=== PATIENT | male | born 1980 | race African-American/Black ===

== ENCOUNTER 2017-09-09 13:41 | Emergency (ER) | payer MEDICAID ==
[~2017-09-09] VITALS: Ht 188 cm; Wt 65.9 kg
[2017-09-09 14:31] VITALS: BP 134/84
[2017-09-09 14:49] LABS: Urine Bacteria NONE SEEN /hpf (None Seen); Urine Blood Negative /uL (Negative); Urine WBC <1 /hpf (0 - 3)
[2017-09-09 15:10] LABS: Basophils # (auto) 0 uL; Basophils % (auto) 0.1 % (0.0-2.0); Eosinophils # (auto) 0.1 uL; Hematocrit 46.5 % (41.0-53.0); Hemoglobin 15.8 g/dL (13.5-17.5); Lymphocytes % (auto) 8.6 % (10.0-50.0); Mean Corpuscular Hemoglobin 31.8 pg (28.0-32.0); Mean Corpuscular Hgb Conc. 34.1 g/dL (32.0-36.0); Mean Corpuscular Volume 93.4 fL (80.0-100.0); Monocytes # (auto) 0.8 uL; Monocytes % (auto) 6.5 % (0.0-12.0); Neutrophils # (auto) 10.1 uL; Neutrophils % (auto) 83.8 % (37.0-80.0); Nucleated Red Blood Cells % 0.1 %; Platelet Count (auto) 253 10^3/uL (140-450); Red Blood Cells 4.98 10^6/uL (4.5-5.90); Red Cell Distribution Width 13.7 % (11.8-14.3); White Blood Cell 12.1 10^3/uL (4.4-10.8)
[2017-09-09 15:24] LABS: Albumin 4.4 g/dL (3.4-5.0); BUN/Creatinine Ratio 10.5; Bilirubin, Total 0.6 mg/dL (0.2-1.0); Calcium 8.9 mg/dL (8.5-10.1); Potassium 3.9 mmol/L (3.5-5.1); Total Protein 8.6 g/dL (6.4-8.2)
== END 2017-09-09 17:22 | disposition left against medical advice (07) ==
LOC: ER 13:41
DX: R11.2 Nausea with vomiting, unspecified (principal); R10.9 Unspecified abdominal pain; R19.7 Diarrhea, unspecified; Z53.21 Procedure and treatment not carried out due to patient leaving prior to being seen by health care provider
CPT/HCPCS: 36415; 80053; 81001; 85025

== ENCOUNTER 2017-09-09 23:44 | Emergency (ER) | payer MEDICAID ==
[~2017-09-09] VITALS: Ht 188 cm; Wt 63.5 kg
[2017-09-10] VITALS: BP 136/85
[2017-09-10 01:11] LABS: Basophils # (auto) 0 uL; Basophils % (auto) 0.1 % (0.0-2.0); Eosinophils # (auto) 0.1 uL; Eosinophils % (auto) 1.2 % (0.0-7.0); Hematocrit 45.2 % (41.0-53.0); Hemoglobin 15.5 g/dL (13.5-17.5); Lymphocytes # (auto) 1.5 uL; Lymphocytes % (auto) 14.3 % (10.0-50.0); Mean Corpuscular Hgb Conc. 34.3 g/dL (32.0-36.0); Mean Corpuscular Volume 93.5 fL (80.0-100.0); Monocytes # (auto) 1.1 uL; Monocytes % (auto) 9.9 % (0.0-12.0); Neutrophils # (auto) 7.9 uL; Neutrophils % (auto) 74.5 % (37.0-80.0); Platelet Count (auto) 243 10^3/uL (140-450); Red Blood Cells 4.83 10^6/uL (4.5-5.90); Red Cell Distribution Width 13.8 % (11.8-14.3); White Blood Cell 10.6 10^3/uL (4.4-10.8)
[2017-09-10 01:29] LABS: Albumin 4.1 g/dL (3.4-5.0); BUN/Creatinine Ratio 8.8; Calcium 9.4 mg/dL (8.5-10.1); Magnesium 2.4 mg/dL (1.6-2.6); Potassium 3.7 mmol/L (3.5-5.1)
[2017-09-10 01:32] LABS: Bilirubin, Total 0.7 mg/dL (0.2-1.0); Total Protein 8.1 g/dL (6.4-8.2)
== END 2017-09-10 07:20 | disposition left against medical advice (07) ==
LOC: ER 23:44
DX: R11.2 Nausea with vomiting, unspecified (principal); R19.7 Diarrhea, unspecified; Z53.21 Procedure and treatment not carried out due to patient leaving prior to being seen by health care provider
CPT/HCPCS: 36415; 80053; 83735; 85025

== ENCOUNTER 2017-09-25 22:18 | Inpatient (IN) | payer MEDICAID ==
[~2017-09-25] VITALS: Ht 188 cm; Wt 97.9 kg
[2017-09-26 00:40] LABS: Basophils # (auto) 0 uL; Basophils % (auto) 0.2 % (0.0-2.0); Eosinophils # (auto) 0.3 uL; Eosinophils % (auto) 1.6 % (0.0-7.0); Hemoglobin 16.1 g/dL (13.5-17.5); Lymphocytes # (auto) 1.3 uL; Lymphocytes % (auto) 6.4 % (10.0-50.0); Mean Corpuscular Hgb Conc. 34.2 g/dL (32.0-36.0); Mean Corpuscular Volume 93.7 fL (80.0-100.0); Monocytes # (auto) 1.6 uL; Monocytes % (auto) 7.6 % (0.0-12.0); Neutrophils # (auto) 17.4 uL; Neutrophils % (auto) 84.2 % (37.0-80.0); Nucleated Red Blood Cells % 0.1 %; Platelet Count (auto) 248 10^3/uL (140-450); Red Blood Cells 5.02 10^6/uL (4.5-5.90); Red Cell Distribution Width 13.8 % (11.8-14.3); White Blood Cell 20.6 10^3/uL (4.4-10.8)
[2017-09-26 00:51] LABS: BUN/Creatinine Ratio 12.7; Calcium 8.8 mg/dL (8.5-10.1); Potassium 3.9 mmol/L (3.5-5.1)
[2017-09-26 00:54] LABS: Bilirubin, Total 0.6 mg/dL (0.2-1.0); Total Protein 8.3 g/dL (6.4-8.2)
[2017-09-26] MEDS ORDERED: SODIUM CHLORIDE 0.9% 1,000 ML IV ONE ×2 (08:24)
[2017-09-26] MEDS ORDERED: PIPERACILLIN-TAZOB 3.375GM 100 ML IV ONE (08:30)
[2017-09-26] MEDS ORDERED: ONDANSETRON HCL 4 MG/2 ML VIAL IV PRN (09:15)
[2017-09-26] MEDS ORDERED: ACETAMINOPHEN 325 MG TAB PO PRN (09:15)
[2017-09-26] MEDS ORDERED: HYDROcodone-ACET 5/325MG TAB PO PRN (09:15)
[2017-09-26] MEDS ORDERED: DOCUSATE SOD 100 MG CAP PO PRN (09:15)
[2017-09-26] MEDS ORDERED: TEMAZEPAM 15 MG CAP PO PRN (09:15)
[2017-09-26] MEDS ORDERED: MORPHINE SULFATE 8mg/ml INJ SDV IV PRN (09:15)
[2017-09-26] MEDS ORDERED: cefTRIAXone 1GM/10ml IVPUSH 10 ML IV ONE (09:15)
[2017-09-26] MEDS ORDERED: FAMOTIDINE 20 MG TAB PO SCH (10:00)
[2017-09-26] MEDS: MULTIPLE VITAMIN TAB PO SCH (10:00)
[2017-09-26] MEDS ORDERED: PANTOPRAZOLE 40 MG/10 ML VIAL IV SCH (10:00)
[2017-09-26] MEDS: metroNIDAZOLE 500MG/100ML 100 ML IV SCH ×2 (10:24→17:31)
[2017-09-26] MEDS: SODIUM CHLORIDE 0.9% 1,000 ML IV SCH ×2 (11:40→17:23)
[2017-09-26] MEDS: SUCRALFATE 1 GM/10 ML ORAL SUSP PO SCH ×3 (12:20→21:55)
[2017-09-26 14:37] LABS: Urine Bacteria NONE SEEN /hpf (None Seen); Urine Blood Negative /uL (Negative); Urine Mucus FEW (None Seen); Urine Specific Gravity 1.018 (1.001-1.035); Urine WBC 5 /hpf (0 - 3)
[2017-09-26 20:00] VITALS: BP 108/65
[2017-09-26] MEDS: PANTOPRAZOLE 40 MG/10 ML VIAL IV SCH (21:56)
[2017-09-27] VITALS (7 sets, daily range): BP systolic 108–148; BP diastolic 65–95
[2017-09-27] MEDS: SODIUM CHLORIDE 0.9% 1,000 ML IV SCH ×3 (02:01→17:47)
[2017-09-27] MEDS: metroNIDAZOLE 500MG/100ML 100 ML IV SCH ×3 (02:03→17:32)
[2017-09-27 05:44] LABS: Basophils # (auto) 0 uL; Basophils % (auto) 0.2 % (0.0-2.0); Eosinophils # (auto) 0.5 uL; Eosinophils % (auto) 6.7 % (0.0-7.0); Hematocrit 39.8 % (41.0-53.0); Hemoglobin 13.7 g/dL (13.5-17.5); Lymphocytes # (auto) 1.9 uL; Lymphocytes % (auto) 24.6 % (10.0-50.0); Mean Corpuscular Hemoglobin 32.4 pg (28.0-32.0); Mean Corpuscular Hgb Conc. 34.5 g/dL (32.0-36.0); Monocytes # (auto) 0.8 uL; Monocytes % (auto) 10.3 % (0.0-12.0); Neutrophils # (auto) 4.4 uL; Neutrophils % (auto) 58.2 % (37.0-80.0); Nucleated Red Blood Cells % 0.1 %; Platelet Count (auto) 183 10^3/uL (140-450); Red Blood Cells 4.23 10^6/uL (4.5-5.90); Red Cell Distribution Width 13.6 % (11.8-14.3); White Blood Cell 7.5 10^3/uL (4.4-10.8)
[2017-09-27 05:59] LABS: Albumin 3.2 g/dL (3.4-5.0); BUN/Creatinine Ratio 7.5; Calcium 8.1 mg/dL (8.5-10.1); Potassium 4.4 mmol/L (3.5-5.1)
[2017-09-27 06:03] LABS: Bilirubin, Total 0.6 mg/dL (0.2-1.0); Total Protein 6.7 g/dL (6.4-8.2)
[2017-09-27] MEDS: SUCRALFATE 1 GM/10 ML ORAL SUSP PO SCH (06:53)
[2017-09-27 08:34] LABS: Partial Thromboplastin Time 27.4 sec (22.64-33.71); Prothrombin Time 10.9 sec (9.37-12.3)
[2017-09-27] MEDS: cefTRIAXone 1GM/10ml IVPUSH 10 ML IV SCH (09:12)
[2017-09-27] MEDS ORDERED: NALOXONE HCL 0.4 MG/ML VIAL ONE (09:41)
[2017-09-27] MEDS ORDERED: LIDOCAINE VISCOUS 2% 15ML UD ONE (09:41)
[2017-09-27] MEDS ORDERED: FLUMAZENIL 0.1 MG/ML INJ 10ML MDV IV ONE (09:41)
[2017-09-27] MEDS ORDERED: diphenhdrAMINE HCL 50 MG/1 ML VL ONE (09:42)
[2017-09-27] MEDS: MULTIPLE VITAMIN TAB PO SCH (10:00)
[2017-09-27] MEDS: PANTOPRAZOLE 40 MG/10 ML VIAL IV SCH (10:51)
[2017-09-27] MEDS: BOOST PLUS 8 ounce PO SCH ×2 (12:00→17:48)
[2017-09-27] MEDS: MIDAZOLAM HCL 5 MG/ML-1ML VIAL ONE ×2 (13:30→13:37)
[2017-09-27] MEDS: fentaNYL CITRATE 100 MCG/2 ML VL ONE ×2 (13:30→13:37)
[2017-09-28] MEDS: metroNIDAZOLE 500MG/100ML 100 ML IV SCH ×2 (01:30→10:00)
[2017-09-28] MEDS: SODIUM CHLORIDE 0.9% 1,000 ML IV SCH ×2 (02:51→11:05)
[2017-09-28 05:00] VITALS: BP 117/66
[2017-09-28 05:40] LABS: Basophils # (auto) 0 uL; Basophils % (auto) 0.3 % (0.0-2.0); Eosinophils # (auto) 0.3 uL; Eosinophils % (auto) 5.2 % (0.0-7.0); Hematocrit 38.4 % (41.0-53.0); Hemoglobin 13.2 g/dL (13.5-17.5); Lymphocytes # (auto) 1.6 uL; Lymphocytes % (auto) 24.6 % (10.0-50.0); Mean Corpuscular Hemoglobin 32.4 pg (28.0-32.0); Mean Corpuscular Hgb Conc. 34.4 g/dL (32.0-36.0); Mean Corpuscular Volume 94.2 fL (80.0-100.0); Monocytes # (auto) 0.7 uL; Monocytes % (auto) 11.1 % (0.0-12.0); Neutrophils # (auto) 3.8 uL; Neutrophils % (auto) 58.8 % (37.0-80.0); Platelet Count (auto) 185 10^3/uL (140-450); Red Blood Cells 4.07 10^6/uL (4.5-5.90); Red Cell Distribution Width 13.4 % (11.8-14.3); White Blood Cell 6.5 10^3/uL (4.4-10.8)
[2017-09-28 05:58] LABS: Calcium 8.8 mg/dL (8.5-10.1); Potassium 4.5 mmol/L (3.5-5.1)
[2017-09-28 06:01] LABS: BUN/Creatinine Ratio 10.6
[2017-09-28 06:19] LABS: Amylase 122 U/L (25-115); Lipase 162 U/L (73-393)
[2017-09-28 08:00] VITALS: BP 139/84
[2017-09-28 08:45] VITALS: BP 139/84
[2017-09-28] MEDS: cefTRIAXone 1GM/10ml IVPUSH 10 ML IV SCH (09:00)
[2017-09-28] MEDS ORDERED: PANTOPRAZOLE 40 MG/10 ML VIAL IV SCH (10:00)
[2017-09-28] MEDS: MULTIPLE VITAMIN TAB PO SCH (10:00)
[2017-09-28] MEDS: BOOST PLUS 8 ounce PO SCH (10:13)
[2017-09-28 10:38] VITALS: BP 139/84
[2017-09-28 12:50] VITALS: BP 147/85
== END 2017-09-28 12:20 | disposition home or self-care (01) | DRG 249 ==
LOC: EDBD 22:18 → ER 22:27 → OVERFLOW 22:28 → WEST WING 09-26 18:32
PROVIDERS: ADMIT Internal Medicine; ATTEND Internal Medicine
PROC: 0DB78ZX Excision of Stomach, Pylorus, Via Natural or Artificial Opening Endoscopic, Diagnostic (ICD-10-PCS; principal; 2017-09-27 13:28)
DX: E86.0 Dehydration (principal); K52.9 Noninfective gastroenteritis and colitis, unspecified; E44.0 Moderate protein-calorie malnutrition; K86.1 Other chronic pancreatitis; E88.09 Other disorders of plasma-protein metabolism, not elsewhere classified; K59.00 Constipation, unspecified; F12.129 Cannabis abuse with intoxication, unspecified; Z88.0 Allergy status to penicillin; Z68.27 Body mass index [BMI] 27.0-27.9, adult; Z83.3 Family history of diabetes mellitus
CPT/HCPCS: 36415; 74176; 76705; 80048; 80053; 81001; 82150; 83605; 83690; 85025; 85610; 85730; 87040; 96365; 96366; 96375; 99291; C9113; J2250; J2543; J3490

== ENCOUNTER 2022-01-10 19:27 | Emergency (ER) | payer MEDICAID ==
[~2022-01-10] VITALS: Ht 188 cm; Wt 140.0 kg
[2022-01-10] MEDS ORDERED: ONDANSETRON HCL 4 MG/2 ML VIAL IV ONE (19:45)
[2022-01-10] MEDS ORDERED: SODIUM CHLORIDE 0.9% 1,000 ML IVB ONE (19:45)
[2022-01-10] MEDS ORDERED: PANTOPRAZOLE 40 MG/10 ML VIAL INJ IV ONE (19:45)
[2022-01-10] MEDS ORDERED: MORPHINE SULFATE 4 MG/ML SYR/VIAL IV ONE (19:45)
[2022-01-10 20:04] LABS: Basophils # (auto) 0 10 ^3/uL (0-0.2); Basophils % (auto) 0.1 % (0.0-2.0); Eosinophils # (auto) 0.3 10 ^3/uL (0-0.8); Eosinophils % (auto) 1.9 % (0.0-7.0); Hemoglobin 16.6 g/dL (13.5-17.5); Lymphocytes # (auto) 1.5 10 ^3/uL (0.4-5.4); Mean Corpuscular Hemoglobin 30.6 pg (28.0-32.0); Mean Corpuscular Hgb Conc. 33.2 g/dL (32.0-36.0); Mean Corpuscular Volume 92.2 fL (80.0-100.0); Monocytes # (auto) 1.2 10 ^3/uL (0-1.3); Monocytes % (auto) 7.2 % (0.0-12.0); Neutrophils # (auto) 13.6 10 ^3/uL (1.6-8.6); Neutrophils % (auto) 81.8 % (37.0-80.0); Red Blood Cells 5.43 10^6/uL (4.5-5.90); Red Cell Distribution Width 13.9 % (11.8-14.3); White Blood Cell 16.6 10^3/uL (4.4-10.8)
[2022-01-10 20:29] LABS: Albumin 4.4 g/dL (3.4-5.0); BUN/Creatinine Ratio 9.2; Calcium 9.1 mg/dL (8.5-10.1); Potassium 4.1 mmol/L (3.5-5.1)
[2022-01-10 20:30] LABS: Bilirubin, Total 1.1 mg/dL (0.2-1.0); Total Protein 8.8 g/dL (6.4-8.2)
[2022-01-10] MEDS ORDERED: PANT40TA2 PO (20:50)
[2022-01-10] MEDS ORDERED: ONDA-144 PO (20:50)
[2022-01-10 23:52] VITALS: BP 120/82
[2022-01-11] MEDS ORDERED: ONDA-144 PO (00:14)
[2022-01-11] MEDS ORDERED: PANT40TA2 PO (00:14)
== END 2022-01-11 00:16 | disposition home or self-care (01) ==
LOC: ER 19:27
DX: K52.9 Noninfective gastroenteritis and colitis, unspecified (principal); F17.210 Nicotine dependence, cigarettes, uncomplicated; Z88.0 Allergy status to penicillin
CPT/HCPCS: 36415; 74176; 80053; 82150; 83690; 85025; 96361; 96374; 96375; 99284; C9113; J2270; J2405; J7030

== ENCOUNTER 2024-12-20 15:19 | Inpatient (IN) | payer MEDICAID ==
[~2024-12-20] VITALS: Ht 188 cm; Wt 67.4 kg
[~2024-12-20 15:19] MED LIST: ONDA-144 PO; PANT40TA2 PO
--- NOTE | 2024-12-20 16:11 | ED.PDOC ---
History of Present Illness HPI Comments 44-year-old male with PMHx Pancreatitis presents with a chief complaint of abdominal pain x 3 days with associated nausea and vomiting. Patient states that his pain is localized to his epigastric region, nonradiating, nonexertional, describes as sharp, and rates his pain a 10/10 at this time. Patient mentions that the last time he had pain like this, he was diagnosed with pancreatitis. Chief Complaint: Abdominal Pain Time Seen by MD: 15:48 Primary Care Provider: NONE Reviewed Notes: Medications, Allergies Allergies: Coded Allergies: Penicillins (Unverified Allergy, Unknown, 01/10/22) Home Meds Active Scripts Ondansetron (Zofran) 4 Mg Tab, 1 TAB PO Q6HR, #20 TAB Prov:JD TEMPLETON MD 01/11/22 Pantoprazole Sodium Sesquihydr (Protonix) 40 Mg Tab, 40 MG PO DAILY, #30 TAB Prov:JD TEMPLETON MD 01/11/22 Information Source: Patient Mode of Arrival: Ambulatory Severity: Moderate Timing: Days Duration: Since onset Prehospital treatment: None Past Medical History Past Medical History (Other): PANCREATITIS Surgical History: Denies all surgeries Family History Family History: Family hx of DM Social History Smoker: Cigarettes Alcohol: Occasionally Drugs: Marijuana Lives In: Home Constitutional: denies: chills, diaphoresis, fatigue, fever, malaise, sweats, weakness, others EENTM: denies: blurred vision, double vision, ear bleeding, ear discharge, ear drainage, ear pain, ear ringing, eye pain, eye redness, hearing loss, mouth p ain, mouth swelling, nasal discharge, nose bleeding, nose congestion, nose pain, photophobia, tearing, throat pain, throat swelling, voice changes, others Respiratory: denies: cough, hemoptysis, orthopnea, SOB at rest, shortness of br eath, SOB with excertion, stridor, wheezing, others Cardiovascular: denies: chest pain, dizzy spells, diaphoresis, Dyspnea on exertion, edema, irregular heart beat, left arm pain, lightheadedness, palpitations, PND, syncope, others Gastrointestinal: reports: abdominal pain, nausea, vomiting; denies: abdomen distended, blood streaked bowels, constipated, diarrhea, dysphagia, difficulty swallowing, hematemesis, melena, poor appetite, poor fluid intake, rectal bleeding, rectal pain, others Genitourinary: denies: burning, dysuria, flank pain, frequency, hematuria, incontinence, penile discharge, penile sore, pain, testicle pain, testicle swelling, urgency, others Neurological: denies: dizziness, fainting, headache, left sided numbness, left sided weakness, numbness, paresthesia, pre-existing deficit, right sided numbness, right sided weakness, seizure, speech problems, tingling, tremors, weakness, others Musculoskeletal: denies: back pain, gout, joint pain, joint swelling, muscle pain, muscle stiffness, neck pain, others Integumetry: denies: bruises, change in color, change in hair/nails, dryness, laceration, lesions, lumps, rash, wounds, others Allergic/Immunocompromised: denies: Difficulty Healing, Frequent Infections, Hives, Itching, others Hematologic/Lymphatic: denies: anemia, blood clots, easy bleeding, easy bruising, swollen glands, others Endocrine: denies: excessive hunger, excessive sweating, excessive thirst, excessive urination, flushing, intolerance to cold, intolerance to heat, unexplained weight gain, unexplained weight loss, others Psychiatric: denies: anxiety, bipolar disorder, depression, hopeless, panic disorder, schizophrenia, sleepless, suicidal, others All Other Systems: Reviewed and Negative Physical Exam General Appearance: No Apparent Distress, Normal HEENT: Normal ENT Inspection, Pharynx Normal, TMs Normal Neck: Full Range of Motion, Non-Tender, Normal, Normal Inspection Respiratory: Chest Non-Tender, Lungs Clear, No Accessory Muscle Use, No Respiratory Distress, Normal Breath Sounds Cardiovascular: No Edema, No JVD, No Murmur, No Gallop, Normal Peripheral Pulses, Regular Rate/Rhythm Breast Exam: Deferred Gastrointestinal: No Organomegaly, Non Tender, No Pulsatile Mass, Normal Bowel Sounds, Soft Genitalia: Deferred Pelvic: Deferred Rectal: Deferred Extremities: No calf tenderness, Normal capillary refill, Normal inspection, Normal range of motion, Non-tender, No pedal edema Musculoskeletal : Apperance: Normal Neurologic: Alert, beef selector II-XII nml as Tested, No Motor Deficits, Normal Affect, Normal Mood, No Sensory Deficits Cerebellar Function: Normal Reflexes: Normal Skin: Dry, Normal Color, Warm Lymphatic: No Adenopathy Was a procedure done? Was a procedure done?: No Differential Dx Considerations may include: Colitis, enteritis, viral syndrome, infectious etiology, small-bowel obstruction X-Ray, Labs, Meds, VS Vital Signs Date Time Temp Pulse Resp B/P (MAP) Pulse Ox O2 Delivery O2 Flow Rate FiO2 12/20/24 18:10 89 13 127/88 12/20/24 17:00 83 15 124/84 (97) 97 12/20/24 16:50 82 15 124/84 12/20/24 16:20 57 13 129/82 12/20/24 16:05 75 12/20/24 16:00 Room Air* 0 21 12/20/24 16:00 98.6 65 16 146/91 (109) 96 98.6 12/20/24 15:30 98.5 65 16 146/91 (109) 96 98.5 Lab Test 12/20/24 16:33 Range/Units White Blood Count 10.1 4.4-10.8 10^3/uL Red Blood Count 4.85 4.5-5.90 10^6/uL Hemoglobin 15.4 13.5-17.5 g/dL Hematocrit 45.1 41.0-53.0 % Mean Corpuscular Volume 92.9 80.0-100.0 fL Mean Corpuscular Hemoglobin 31.8 28.0-32.0 pg Mean Corpuscular Hemoglobin Concent 34.3 32.0-36.0 g/dL Red Cell Distribution Width 13.4 11.8-14.3 % Platelet Count 201 140-450 10^3/uL Mean Platelet Volume 8.4 6.9-10.8 fL Neutrophils (%) (Auto) 78.4 37.0-80.0 % Lymphocytes (%) (Auto) 9.6 L 10.0-50.0 % Monocytes (%) (Auto) 8.6 0.0-12.0 % Eosinophils (%) (Auto) 3.1 0.0-7.0 % Basophils (%) (Auto) 0.3 0.0-2.0 % Neutrophils # (Auto) 7.9 1.6-8.6 10 ^3/uL Lymphocytes # (Auto) 1.0 0.4-5.4 10 ^3/uL Monocytes # (Auto) 0.9 0-1.3 10 ^3/uL Eosinophils # (Auto) 0.3 0-0.8 10 ^3/uL Basophils # (Auto) 0 0-0.2 10 ^3/uL Nucleated Red Blood Cells 0.0 % Sodium Level 141 136-145 mmol/L Potassium Level 3.6 3.5-5.1 mmol/L Chloride Level 108 H 98-107 mmol/L Carbon Dioxide Level 25 20-31 mmol/L Anion Gap 8 5-15 Blood Urea Nitrogen 12 9-23 mg/dL Creatinine 1.10 0.700-1.30 mg/dL Glomerular Filtration Rate Calc 86 >90 mL/min BUN/Creatinine Ratio 10.9 10.0-20.0 Serum Glucose 101 74-106 mg/dL Calcium Level 8.3 L 8.7-10.4 mg/dL Total Bilirubin 0.7 0.2-1.0 mg/dL Aspartate Amino Transferase (AST) 26 13-40 U/L Alanine Aminotransferase (ALT) 21 7-40 U/L Alkaline Phosphatase 69 46-116 U/L Total Protein 6.3 5.7-8.2 g/dL Albumin 3.9 3.2-4.8 g/dL Lipase 40 12-53 U/L Current Medications Medications (Trade) Dose Ordered Sig/Stefany Route Start Time Stop Time Status Last Admin Sodium Chloride 1,000 ml @ 1,000 mls/hr Q1H ONCE IV 12/20/24 16:00 12/20/24 16:59 DC 12/20/24 16:18 Morphine Sulfate 4 mg ONCE ONCE IV 12/20/24 16:00 12/20/24 16:01 DC 12/20/24 16:20 Ondansetron HCl (Zofran) 4 mg ONCE ONCE IV 12/20/24 16:00 12/20/24 16:01 DC 12/20/24 16:21 Ondansetron HCl (Zofran) 4 mg ONCE ONCE IV 12/20/24 18:00 12/20/24 18:01 MN 12/20/24 18:11 Morphine Sulfate 4 mg ONCE ONCE IV 12/20/24 18:00 12/20/24 18:01 DC 12/20/24 18:10 PROCEDURE(s): ABPLIV - CT AB PEL WITH IV CON ONLY REASON: epigastric pain ORDER NUMBER(s): [id number], ACCESSION NUMBER(s): [id number] COMPUTERIZED TOMOGRAPHY ABDOMEN AND PELVIS WITH CONTRAST REASON FOR EXAM: epigastric pain COMPARISON: None TECHNIQUE: The exam was performed on a Multidetector scanner. Spiral scans were acquired from the diaphragm to the symphysis pubis after administration of IV contrast. 2-D coronal and sagittal reformatted images were provided. Radiation optimization: All CT scans at this facility use at least one of these dose optimization techniques: Automated exposure control mA and/or kV adjustment per patient size (includes targeted exams where dose is matched to clinical indication) or iterative reconstruction. CONTRAST ADMINISTRATION: 80 mL omnipaque 300 intravenously RADIATION DOSE: CTDI: 5 mGy DLP: 278 mGy-cm FINDINGS: The visualized lung apices are grossly clear. There is no pleural effusion. T here is no pericardial effusion. The spleen is not enlarged. The liver is normal in size and contour. No calcified gallstone is identified. The stomach is significantly distended. The pancreas is grossly unremarkable. The adrenal glands are normal. The kidneys enhance symmetrically. No solid renal mass is identified. There is no hydronephrosis of either kidney. There is no abdominal aortic aneurysm. No pathologic lymphadenopathy is identified by size criteria. The urinary bladder is within normal limits. The prostate and seminal vesicles are within normal limits. There is fluid distributed throughout the large and small bowel without pathologic distention or transition point. The appendix is normal. No acute osseous abnormality is identified. IMPRESSION: Distended stomach and fluid distributed throughout large and small bowel without pathologic distention or a transition point. This can be seen with enteritis. There is no convincing evidence of small-bowel obstruction. Normal appendix. X-Ray, Labs, Meds, VS Comment Addendum by Dr. Ariana Rojas: 44-year-old male who presented with abdominal pain, nausea and vomiting, endorsed to me by Dr. Brown to follow-up on CT results and re-evaluate. CT abdomen and pelvis: IMPRESSION: Distended stomach and fluid distributed throughout large and small bowel without pathologic distention or a transition point. This can be seen with enteritis. There is no convincing evidence of small-bowel obstruction. Normal appendix. Patient received IV fluids, morphine and Zofran without relief, and was still having pain and could not tolerate p.o. fluids. Plan will be to admit the patient for pain and emesis control. Time of 1ST Reevaluation: 16:18 Reevaluation 1ST: Unchanged Patient Education/Counseling: Diagnosis, Treatment, Need For Follow Up Family Education/Counseling: No Family Present SEPSIS Sepsis Screen Physician Orders Urinalysis (12/20/24 15:48) Ct Ab Pel With Iv Con Only (12/20/24 16:58) Vital Signs Date Time Temp Pulse Resp B/P (MAP) Pulse Ox O2 Delivery O2 Flow Rate FiO2 12/20/24 18:10 89 13 127/88 12/20/24 17:00 83 15 124/84 (97) 97 12/20/24 16:50 82 15 124/84 12/20/24 16:20 57 13 129/82 12/20/24 16:05 75 12/20/24 16:00 Room Air* 0 21 12/20/24 16:00 98.6 65 16 146/91 (109) 96 98.6 12/20/24 15:30 98.5 65 16 146/91 (109) 96 98.5 Laboratory Tests Test 12/20/24 16:33 White Blood Count 10.1 10^3/uL (4.4-10.8) Medications Medications Dose Ordered Sig/Stefany Route Start Time Stop Time Status Last Admin Dose Admin Morphine Sulfate 4 mg ONCE ONCE IV 12/20/24 16:00 12/20/24 16:01 DC 12/20/24 16:20 Morphine Sulfate 4 mg ONCE ONCE IV 12/20/24 18:00 12/20/24 18:01 DC 12/20/24 18:10 Ondansetron HCl 4 mg ONCE ONCE IV 12/20/24 16:00 12/20/24 16:01 DC 12/20/24 16:21 Ondansetron HCl 4 mg ONCE ONCE IV 12/20/24 18:00 12/20/24 18:01 DC 12/20/24 18:11 Sodium Chloride 1,000 ml @ 1,000 mls/hr Q1H ONCE IV 12/20/24 16:00 12/20/24 16:59 DC 12/20/24 16:18 Departure 1 Departure Time of Disposition: 18:32 (Patient presented with abdominal pain that was concerning for possible appendicits, gastritis, cholecystitis, colitis, gastroenteritis, sbo, or orther possible surgical emergency. Data: 1. I ordered and reviewed the result of at least 3 labs including a CBC, BMP, and Urinalysis. 2. I independently interpreted the following tests: CT Abdoment and Pelvis is concerning for diffuse colitis .Risk:This patient has a high risk of morbidity due to further diagnostic testing or treatment and may suffer from an acute abdominal process disorder. Workup reveals diffuse colitis and patient should be admitted for further workup. and possible expert consultation. ) Impression: Primary Impression: Intractable abdominal pain Additional Impressions: Intractable vomiting Non-specific colitis Disposition: ADMITTED INPATIENT Admit to: Med Surg Condition: Guarded Critical Care Note Critical Care Time?: Yes Critical care comment: Intractable abdominal pain Authorized and Performed by: Sharron Brown MD Total critical care time: Approximately 47 minutes Due to a high probability of clinically significant, life threatening deterioration, the patient required my highest level of preparedness to intervene emergently and I personally spent this critical care time directly and personally managing the patient. This critical care time included obtaining a history; examining the patient; pulse oximetry; ordering and review of studies; arranging urgent treatment with development of a management plan; evaluation of patient's response to treatment; frequent reassessment; and, discussions with other providers. This critical care time was performed to assess and manage the high probability of imminent, life-threatening deterioration that could result in multi-organ failure. It was exclusive of separately billable procedures and treating other patients and teaching time. Please see my other sections and the rest of the note for further information on patient assessment and treatment. Stability Stability form required: No Heart Score Heart Score: Heart Score Response (Comments) Value History N/A 0 EKG N/A 0 Age N/A 0 Risk Factors N/A 0 Troponin N/A 0 Total 0 I personally scribed for SHARRON BROWN MD ([email or web address]) on 12/20/24 at 16:11. Electronically submitted by Rudy Allan ([email or web address]). SHARRON BROWN MD Dec 20, 2024 16:11 WESLEY SULLIVAN MD Dec 20, 2024 18:28
[2024-12-20] MEDS: SODIUM CHLORIDE 0.9% 1,000 ML IV ONE (16:18)
[2024-12-20] MEDS: MORPHINE SULFATE 4 MG/ML SYR/VIAL IV ONE ×2 (16:20→18:10)
[2024-12-20] MEDS: ONDANSETRON HCL 4 MG/2 ML VIAL IV ONE ×2 (16:21→18:11)
[2024-12-20 16:49] LABS: Hematocrit 45.1 % (41.0-53.0); Hemoglobin 15.4 g/dL (13.5-17.5); Mean Corpuscular Hemoglobin 31.8 pg (28.0-32.0); Mean Corpuscular Volume 92.9 fL (80.0-100.0); Nucleated Red Blood Cells % 0.0 %
[2024-12-20 17:01] LABS: Alanine Aminotransferase 21 U/L (7-40); Albumin 3.9 g/dL (3.2-4.8); Alkaline Phosphatase 69 U/L (46-116); Anion Gap 8 (5-15); BUN/Creatinine Ratio 10.9 (10.0-20.0); Bilirubin, Total 0.7 mg/dL (0.2-1.0); Blood Urea Nitrogen 12 mg/dL (9-23); Carbon Dioxide 25 mmol/L (20-31); Glucose 101 mg/dL (74-106); Lipase 40 U/L (12-53); Potassium 3.6 mmol/L (3.5-5.1); Sodium 141 mmol/L (136-145); Total Protein 6.3 g/dL (5.7-8.2)
[2024-12-20 17:07] LABS: Calcium 8.3 mg/dL (8.7-10.4); Chloride 108 mmol/L (98-107)
[2024-12-20] MEDS: IOHEXOL 300 MG/ML 100ML BOTTLE IJ ONE (18:08)
--- NOTE | 2024-12-20 18:14 | DVH ---
COMPUTERIZED TOMOGRAPHY ABDOMEN AND PELVIS WITH CONTRAST REASON FOR EXAM: epigastric pain COMPARISON: None TECHNIQUE: The exam was performed on a Multidetector scanner. Spiral scans were acquired from the nathan phragm to the symphysis pubis after administration of IV contrast. 2-D coronal and sagittal reformatt ed images were provided. Radiation optimization: All CT scans at this facility use at least one of th lorne dose optimization techniques: Automated exposure control mA and/or kV adjustment per patient size (includes targeted exams where dose is matched to clinical indication) or iterative reconstruction. CONTRAST ADMINISTRATION: 80 mL omnipaque 300 intravenously RADIATION DOSE: CTDI: 5 mGy DLP: 278 mGy-cm FINDINGS: The visualized lung apices are grossly clear. There is no pleural effusion. There is no pericardial effusion. The spleen is not enlarged. The liver is normal in size and contour. No calcified gallston e is identified. The stomach is significantly distended. The pancreas is grossly unremarkable. The a drenal glands are normal. The kidneys enhance symmetrically. No solid renal mass is identified. Ther e is no hydronephrosis of either kidney. There is no abdominal aortic aneurysm. No pathologic lymphad enopathy is identified by size criteria. The urinary bladder is within normal limits. The prostate a nd seminal vesicles are within normal limits. There is fluid distributed throughout the large and sma ll bowel without pathologic distention or transition point. The appendix is normal. No acute osseous abnormality is identified. IMPRESSION: Distended stomach and fluid distributed throughout large and small bowel without pathologic distentio n or a transition point. This can be seen with enteritis. There is no convincing evidence of small-joni wel obstruction. Normal appendix.
--- NOTE | 2024-12-20 22:13 | DVHHP2 ---
History of Present Illness History of Present Illness This is a 44-year-old male with past medical history of pancreatitis came to ER with the complaint of severe abdominal pain for 3 days which is worsen since afternoon today 10/10 intensity, continuous, localized localized in epigastric region, aggravated on eating no relieving factors associated with nausea and vomiting. Vomitus contained food materials but no blood . Patient denies any recent sick contact, eating outside food before symptoms started. Patient used to smoking cigarettes and marijuana daily. Last smoking marijuana yesterday. Denies any chest pain, SOB, cough, headache, fever, dysuria or any focal weakness. Past Medical History: PANCREATITIS Surgical History: Denies all surgeries Family History: Family hx of DM Social History Smoker: Cigarettes daily approximately pack per day Alcohol: Occasionally Drugs: Marijuana daily and last smoking yesterday Lives In: Home Allergy: PCN Review of Systems Constitutional: Yes: Weakness, Malaise; No: Fever, Chills, Sweats, Other Eyes: No: Pain, Vision change, Conjunctivae inflammation, Eyelid inflammation, Other, Redness ENT: No: Ear pain, Ear discharge, Nose pain, Nose discharge, Nose congestion, Mouth pain, Mouth swelling, Throat pain, Throat swelling, Other Respiratory: No: Cough, Dry, Shortness of breath, SOB with excertion, Wheezing, Hemoptysis, Pleuritic Pain, Sputum, Wheezing, Other Cardiovascular: No: Chest Pain, Palpitations, Orthopnea, Paroxysmal Noc. Dyspnea, Edema, Lt Headedness, Other Gastrointestinal: Nausea, Vomiting, Abdominal Pain; No: Diarrhea, Constipation, Melena, Hematochezia, Other Genitourinary: No Dysuria, No Frequency, No Incontinence, No Hematuria, No Retention, No Other Musculoskeletal: No: other, neck pain, shoulder pain, arm pain, back pain, hand pain, leg pain, foot pain Skin: No: Rash, Lesions, Jaundice, Bruising, Other Neurological: No: Weakness, Numbness, Incoordination, Change in speech, Confusion, Seizures, Other Allergies: Coded Allergies: Metoclopramide (Verified Allergy, Intermediate, Rash, 12/21/24) Penicillins (Unverified Allergy, Unknown, 01/10/22) Medications Current Medications Medications Dose Ordered Sig/Stefany Route Start Time Stop Time Status Last Admin Dose Admin Nitroglycerin 0.4 mg Q5MINP PRN SL 12/20/24 22:15 UNV Morphine Sulfate 2 mg Q30M PRN IV 12/20/24 22:15 UNV Sodium Chloride 1,000 ml @ 100 mls/hr Q10H IV 12/20/24 22:15 UNV Pantoprazole Sodium 40 mg DAILY IV 12/21/24 10:00 UNV Ondansetron HCl 4 mg Q8HPRN PRN IV 12/20/24 22:15 UNV Metoclopramide HCl 10 mg Q6HR IV 12/21/24 00:00 UNV Exam Vital Signs Vital Signs Date Time Temp Pulse Resp B/P (MAP) Pulse Ox O2 Delivery O2 Flow Rate FiO2 12/20/24 20:00 97.2 66 14 115/64 (81) 96 97.2 12/20/24 16:00 Room Air* 0 21 General Appearance: Alert, Oriented X3, Cooperative HEENT: Atraumatic, PERRLA, EOMI Respiratory: Clear to auscultation, Normal air movement Cardiovascular: Regular rate, Normal S1, Normal S2 Abdominal: Normal bowel sounds, Soft, Other (TENDER ON DEEP PALPATION EPIGASTRIC AREA) Extremities: No clubbing, No cyanosis, No edema, Normal pulses Skin: No breakdown, No significant lesion Neuro: Normal gait, Normal speech Labs/Xrays Labs Test 12/20/24 16:33 Range/Units White Blood Count 10.1 4.4-10.8 10^3/uL Red Blood Count 4.85 4.5-5.90 10^6/uL Hemoglobin 15.4 13.5-17.5 g/dL Hematocrit 45.1 41.0-53.0 % Mean Corpuscular Volume 92.9 80.0-100.0 fL Mean Corpuscular Hemoglobin 31.8 28.0-32.0 pg Mean Corpuscular Hemoglobin Concent 34.3 32.0-36.0 g/dL Red Cell Distribution Width 13.4 11.8-14.3 % Platelet Count 201 140-450 10^3/uL Mean Platelet Volume 8.4 6.9-10.8 fL Neutrophils (%) (Auto) 78.4 37.0-80.0 % Lymphocytes (%) (Auto) 9.6 L 10.0-50.0 % Monocytes (%) (Auto) 8.6 0.0-12.0 % Eosinophils (%) (Auto) 3.1 0.0-7.0 % Basophils (%) (Auto) 0.3 0.0-2.0 % Neutrophils # (Auto) 7.9 1.6-8.6 10 ^3/uL Lymphocytes # (Auto) 1.0 0.4-5.4 10 ^3/uL Monocytes # (Auto) 0.9 0-1.3 10 ^3/uL Eosinophils # (Auto) 0.3 0-0.8 10 ^3/uL Basophils # (Auto) 0 0-0.2 10 ^3/uL Nucleated Red Blood Cells 0.0 % Sodium Level 141 136-145 mmol/L Potassium Level 3.6 3.5-5.1 mmol/L Chloride Level 108 H 98-107 mmol/L Carbon Dioxide Level 25 20-31 mmol/L Anion Gap 8 5-15 Blood Urea Nitrogen 12 9-23 mg/dL Creatinine 1.10 0.700-1.30 mg/dL Glomerular Filtration Rate Calc 86 >90 mL/min BUN/Creatinine Ratio 10.9 10.0-20.0 Serum Glucose 101 74-106 mg/dL Calcium Level 8.3 L 8.7-10.4 mg/dL Total Bilirubin 0.7 0.2-1.0 mg/dL Aspartate Amino Transferase (AST) 26 13-40 U/L Alanine Aminotransferase (ALT) 21 7-40 U/L Alkaline Phosphatase 69 46-116 U/L Total Protein 6.3 5.7-8.2 g/dL Albumin 3.9 3.2-4.8 g/dL Lipase 40 12-53 U/L SEPSIS Sepsis Screen Date sepsis recognized/suspect: Dec 20, 2024 Time Sepsis recognized/suspect: 1524 Recent Procedure: No On Antibiotic Therapy: No Respiratory Rate >20: No Heart Rate >90: No Temp<36 C (96.8 F) or >38.3 C: No SBP <90 or MAP <65 mmHG: No New Acute Mental Status Change: No Is the patient on CPAP, BIPAP,: No Physician Orders Urinalysis (12/20/24 15:48) Ct Ab Pel With Iv Con Only (12/20/24 16:58) Admit (12/20/24 22:06) Nitroglycerin Sublingual (Ntrostat Subli (12/20/24 22:15) Morphine Sulfate Injection (12/20/24 22:15) Clear Liq Diet (12/21/24 Breakfast) Sodium Chloride 0.9% (12/20/24 22:15) Pantoprazole (Protonix) (12/20/24 22:15) Pantoprazole (Protonix) (12/21/24 10:00) Ondansetron Hcl (Zofran) (12/20/24 22:15) Metoclopramide Injection (Reglan Injecti (12/21/24 00:00) Vital Signs Date Time Temp Pulse Resp B/P (MAP) Pulse Ox O2 Delivery O2 Flow Rate FiO2 12/20/24 20:00 97.2 66 14 115/64 (81) 96 97.2 12/20/24 19:00 84 12 122/83 (96) 96 12/20/24 18:40 80 12 122/83 12/20/24 18:10 89 13 127/88 12/20/24 18:00 84 15 122/83 (96) 96 12/20/24 17:00 83 15 124/84 (97) 97 12/20/24 16:50 82 15 124/84 12/20/24 16:20 57 13 129/82 12/20/24 16:05 75 12/20/24 16:00 Room Air* 0 21 12/20/24 16:00 98.6 65 16 146/91 (109) 96 98.6 12/20/24 15:30 98.5 65 16 146/91 (109) 96 98.5 Laboratory Tests Test 12/20/24 16:33 White Blood Count 10.1 10^3/uL (4.4-10.8) Medications Medications Dose Ordered Sig/Stefany Route Start Time Stop Time Status Last Admin Dose Admin Morphine Sulfate 4 mg ONCE ONCE IV 12/20/24 16:00 12/20/24 16:01 DC 12/20/24 16:20 4 MG Morphine Sulfate 4 mg ONCE ONCE IV 12/20/24 18:00 12/20/24 18:01 DC 12/20/24 18:10 4 MG Ondansetron HCl 4 mg ONCE ONCE IV 12/20/24 16:00 12/20/24 16:01 DC 12/20/24 16:21 4 MG Ondansetron HCl 4 mg ONCE ONCE IV 12/20/24 18:00 12/20/24 18:01 DC 12/20/24 18:11 4 MG Sodium Chloride 1,000 ml @ 1,000 mls/hr Q1H ONCE IV 12/20/24 16:00 12/20/24 16:59 DC 12/20/24 16:18 1,000 MLS/HR Assessment/Plan Assessment/Plan #INTRACTABLE ABDOMINAL PAIN LIKELY ACUTE GASTRITIS -Patient came with abdominal pain, nausea and vomiting -Received morphine, Ondansetron, NSS bolus in ED -lipase 40 -CT ABD AND PEL WITH CONTRAST:Distended stomach and fluid distributed throughout large and small bowel without pathologic distention or a transition point. This can be seen with enteritis. There is no convincing evidence of small-bowel obstruction. -NSS 100 cc/ hour -keep patient NPO -Pantoprazole 40 mg follow-up p.o. daily -Ondansetron 4 mg q.8h p.r.n. -DC Metoclopramide 10 mg q.6h ( pt having rash with itching). -Tylenol 650 mg p.o. q.6 p.r.n. -surgery consult #Allergic drug reaction -Pt experienced itching and rash after administered Metoclopramide. -Patient denies any SOB, cough, headache -Benadryl 25 mg p.o.and methylprednisolone 20 mg IV stat given, -DCed metoclopramide. #CANNABIS INDUCED HYPEREMESIS -Patient came with nausea and vomiting -Use marijuana daily Last smoking yesterday. -Urine drug screening -Ondansetron 4 mg q.8h p.r.n. #SUBSTANCE USE DISORDERS -Use marijuana daily, ETOH occasionally UDS -Counseling done regarding substance abuse. # HISTORY OF PANCREATITIS -Serum lipase 40 -Not on any medication #DIET: Regular #GI prophylaxis: pantoprazole 40 mg p.o. daily #DVT prophylaxis: Lovenox 30 mg sc daily upper Goals of care discussions, more than 26 minute spent. Full code status. His discussed with Dr. Soto. Plan discussed with: Patient, Other (NURSE) My Orders Orders - APRIL GIRALDO RESIDENT Procedure Category Date Status Time Admit ADMIT 12/20/24 Transmitted 22:06 Nitroglycerin PHA 12/20/24 Logged Sublingual (Ntrostat 22:15 Morphine Sulfate PHA 12/20/24 Logged Injection 22:15 Clear Liq Diet DIET 12/21/24 Transmitted Breakfast Sodium Chloride 0.9% PHA 12/20/24 Logged 22:15 Pantoprazole PHA 12/20/24 Logged (Protonix) 22:15 Pantoprazole PHA 12/21/24 Transmitted (Protonix) 10:00 Ondansetron Hcl PHA 12/20/24 Transmitted (Zofran) 22:15 Metoclopramide PHA 12/21/24 Transmitted Injection (Reglan 00:00 Date of Service: Dec 20, 2024 Billing Provider: STEPHAN SOTO MD Common Visit Codes: 42202-PKTHGIU INP/OBS CARE (HIGH) Secondary Visit Codes: 73778-INQPJCSR CARE PLAN 30 MINUTES APRIL GIRALDO RESIDENT Dec 20, 2024 22:13
[2024-12-20] MEDS ORDERED: NITROGLYCERIN 0.4 MG SL TAB SL PRN (22:15)
[2024-12-20] MEDS ORDERED: MORPHINE SULFATE INJ 2 MG/ml SYRG IV PRN (22:15)
[2024-12-20] MEDS ORDERED: ONDANSETRON HCL 4 MG/2 ML VIAL IV PRN (22:15)
[2024-12-20] MEDS: PANTOPRAZOLE 40 MG/10 ML VIAL INJ IV ONE (22:39)
[2024-12-20] MEDS: SODIUM CHLORIDE 0.9% 1,000 ML IV SCH (22:40)
[2024-12-20 23:12] VITALS: BP 132/88; PULSE 62; RESP 18; TEMP 97; O2SAT 99
[2024-12-20 23:35] VITALS: BP 132/88; PULSE 62; RESP 18; TEMP 97; O2SAT 99
[2024-12-21] VITALS (7 sets, daily range): BP systolic 103–132; BP diastolic 48–88; PULSE 62–109; RESP 16–18; TEMP 97–101.3; O2SAT 95–99
[2024-12-21] MEDS: METOCLOPRAMIDE HCL 5MG/ml INJ 2ml VIAL IV SCH (01:30)
[2024-12-21] MEDS: diphenhdrAMINE HCL 25 MG CAP PO ONE (05:47)
[2024-12-21] MEDS: methylPREDNISolone SOD SUCC 40 MG/ML VL IV ONE (05:48)
[2024-12-21] MEDS: ENOXAPARIN SOD 30 MG/0.3 ML SYRINGE SC SCH (10:00)
--- NOTE | 2024-12-21 10:12 | DVHPNRES ---
Progress Note Date Seen: Dec 21, 2024 Resident Creating Document: BELIA HARDIN RESIDENT Has the PT tested + for MRSA If YES, has PT been informed?: No Medical Necessity Reason Pt with a Central, PICC or Fol: No Subjective Review of Systems Mr. Bradley is a 44-year-old male with past medical history of pancreatitis 2023. The patient visit the ER with the complaint of severe abdominal pain for 3 days which is worsen since afternoon today 10/10 intensity, continuous, burning like, localized in epigastric region, aggravated with food, no relieving factors, not radiates; associated with nausea and vomiting #3, containing food materials but no blood. Patient denies any recent sick contact, eating outside food before symptoms started. Patient used to smoking cigarettes and marijuana daily. Last smoking marijuana was yesterday. Denies any chest pain, SOB, cough, headache, fever, dysuria or any focal weakness. Today, patient reports the pain is better after medications 2/10, nausea and vomit has stopped. He reports watery diarrhea #3, foul smell, no mucus. Vital signs were reviewed and with in normal limits. Labs: lipase is 40, AU is pending. Surgery consult was placed, patient is on NPO. We will follow up with this patient. ROS Constitutional: Yes: Weakness, Malaise; No: Fever, Chills, Sweats, Other Eyes: No: Pain, Vision change, Conjunctivae inflammation, Eyelid inflammation, Other, Redness ENT: No: Ear pain, Ear discharge, Nose pain, Nose discharge, Nose congestion, Mouth pain, Mouth swelling, Throat pain, Throat swelling, Other Respiratory: No: Cough, Dry, Shortness of breath, SOB with excertion, Wheezing, Hemoptysis, Pleuritic Pain, Sputum, Wheezing, Other Cardiovascular: No: Chest Pain, Palpitations, Orthopnea, Paroxysmal Noc. Dyspnea, Edema, Lt Headedness, Other Gastrointestinal: Nausea, Vomiting, Abdominal Pain, diarrhea, Constipation, Melena, Hematochezia, Other Genitourinary: No Dysuria, No Frequency, No Incontinence, No Hematuria, No Retention, No Other Musculoskeletal: No: other, neck pain, shoulder pain, arm pain, back pain, hand pain, leg pain, foot pain Skin: No: Rash, Lesions, Jaundice, Bruising, Other Neurological: No: Weakness, Numbness, Incoordination, Change in speech, Confusion, Seizures, Other Allergies: Metoclopramide (Verified Allergy, Intermediate, Rash, 12/21/24) Penicillins (Unverified Allergy, Unknown, 01/10/22) Objective vital signs Vital Sign Date Time Temp Pulse Resp B/P (MAP) Pulse Ox O2 Delivery O2 Flow Rate FiO2 12/21/24 05:00 97.8 98 18 106/61 (76) 95 97.8 12/20/24 23:35 Room Air* 0 21 Total Intake and Output 12/20/24 12/20/24 12/21/24 15:00 23:00 07:00 Intake Total 1000 ml Balance 1000 ml medications Current Medications Medications Dose Ordered Sig/Stefany Route Start Time Stop Time Status Last Admin Dose Admin Nitroglycerin 0.4 mg Q5MINP PRN SL 12/20/24 22:15 Morphine Sulfate 2 mg Q30M PRN IV 12/20/24 22:15 Sodium Chloride 1,000 ml @ 100 mls/hr Q10H IV 12/20/24 22:15 12/20/24 22:40 100 MLS/HR Pantoprazole Sodium 40 mg DAILY IV 12/21/24 10:00 Ondansetron HCl 4 mg Q8HPRN PRN IV 12/20/24 22:15 Enoxaparin Sodium 30 mg DAILY SC 12/21/24 10:00 Examination General Appearance: Alert, Oriented X3, Cooperative HEENT: Atraumatic, PERRLA, EOMI Respiratory: Clear to auscultation, Normal air movement Cardiovascular: Regular rate, Normal S1, Normal S2 Abdominal: Normal bowel sounds, Soft, Epigastric abdominal pain, Riojas's sign negative. Extremities: No clubbing, No cyanosis, No edema, Normal pulses Skin: No breakdown, No significant lesion Neuro: Normal gait, Normal speech. laboratory and microbiology Laboratory Tests 12/20/24 16:33 Test 12/20/24 16:33 Range/Units Serum Glucose 101 74-106 mg/dL Problem List/Assessment/Plan Problem List/Assessment/Plan #Intractable abdominal pain, likely due to acute gastritis. -Patient came with abdominal pain, nausea and vomiting -Received morphine, Ondansetron, NSS bolus in ED -lipase 40 -CT ABD AND PEL WITH CONTRAST:Distended stomach and fluid distributed throughout large and small bowel without pathologic distention or a transition point. This can be seen with enteritis. There is no convincing evidence of small-bowel obstruction. -NSS 100 cc/ hour -keep patient NPO -Pantoprazole 40 mg follow-up p.o. daily -Ondansetron 4 mg q.8h p.r.n. -DC Metoclopramide 10 mg q.6h ( pt having rash with itching). -Tylenol 650 mg p.o. q.6 p.r.n. -surgery consult -NPO #Allergic drug reaction -Pt experienced itching and rash after administered Metoclopramide. -Patient denies any SOB, cough, headache -Benadryl 25 mg p.o.and methylprednisolone 20 mg IV stat given, -DCed metoclopramide. #Cannabis induced hyperemesis -Patient came with nausea and vomiting -Use marijuana daily Last smoking yesterday. -Urine drug screening -Ondansetron 4 mg q.8h p.r.n #Gi Gastroenteritis Metronidazole 500mg Ceftriaxone 1g. #Substance use disorder -Use marijuana daily, ETOH occasionally UDS -Counseling done regarding substance abuse. # History of pancreatitis. -Serum lipase 40 -Not on any medication #DIET: NPO #GI prophylaxis: pantoprazole 40 mg p.o. daily #DVT prophylaxis: Lovenox 30 mg sc daily upper Goals of care discussions, more than 35 minute spent. Code status: full code His discussed with Dr. Leos Plan discussed with: Patient, Other (NURSE), patient agrees with the plan. Plan discussed with: Patient RHINA HARDINE RESIDENT Dec 21, 2024 10:12
[2024-12-21] MEDS: PANTOPRAZOLE 40 MG/10 ML VIAL INJ IV SCH (10:14)
[2024-12-21 11:52] LABS: Urine Protein, UAD Negative (Negative)
[2024-12-21 11:54] LABS: Cannabinoid Screen, Urine Pos (NEGATIVE); Opiate Scree,Urine Neg (NEGATIVE)
[2024-12-21 11:56] LABS: Barbiturate Scree,Urine Neg (NEGATIVE)
[2024-12-21 11:57] LABS: Amphetamine Screen, Urine Pos (NEGATIVE); Benzodiazephine Screen, Urine Neg (NEGATIVE); Cocaine Screen, Urine Neg (NEGATIVE); Phencyclidine Screen, Urine Neg (NEGATIVE)
--- NOTE | 2024-12-21 12:22 | DVHINCON2 ---
Date of service: Dec 21, 2024 History of Present Illness 44-year-old otherwise healthy male complaining of three day history of diffuse abdominal pain associated with nausea and vomiting. Patient denies any fevers or chills. Patient reports improvement in his abdominal pain to a point where today patient is denying any abdominal pain. He has been able to tolerate liquid diet. Past Medical History None Past Surgical History None Family History: Diabetes mellitus G8 MOTHER G8 FATHER Family History Noncontributory Social History Smokes marijuana. Uses methamphetamines. Denies alcohol. Allergies: Coded Allergies: Metoclopramide (Verified Allergy, Intermediate, Rash, 12/21/24) Penicillins (Unverified Allergy, Unknown, 01/10/22) Home Meds Active Scripts Ondansetron (Zofran) 4 Mg Tab, 1 TAB PO Q6HR, #20 TAB Prov:JD TEMPLETON MD 01/11/22 Pantoprazole Sodium Sesquihydr (Protonix) 40 Mg Tab, 40 MG PO DAILY, #30 TAB Prov:JD TEMPLETON MD 01/11/22 Current Medications Current Medications Medications (Trade) Dose Ordered Sig/Stefany Route PRN Reason Start Time Stop Time Status Last Admin Nitroglycerin (Ntrostat Sublingual) 0.4 mg Q5MINP PRN SL FOR CHEST PAIN 12/20/24 22:15 Morphine Sulfate 2 mg Q30M PRN IV FOR CHEST PAIN 12/20/24 22:15 Sodium Chloride 1,000 ml @ 100 mls/hr Q10H IV 12/20/24 22:15 12/21/24 10:12 Pantoprazole Sodium (Protonix) 40 mg DAILY IV 12/21/24 10:00 12/21/24 10:14 Ondansetron HCl (Zofran) 4 mg Q8HPRN PRN IV NAUSEA / VOMITING 12/20/24 22:15 Metoclopramide HCl (Reglan Injection) 10 mg Q6HR IV 12/21/24 00:00 12/21/24 05:36 DC 12/21/24 01:30 Enoxaparin Sodium (Lovenox) 30 mg DAILY SC 12/21/24 10:00 Ceftriaxone Sodium 50 ml @ 100 mls/hr DAILY@09 IV 12/22/24 09:00 UNV Metronidazole 100 ml @ 100 mls/hr Q8HR IV 12/21/24 14:00 UNV Vital Signs Vital Signs Date Time Temp Pulse Resp B/P (MAP) Pulse Ox O2 Delivery O2 Flow Rate FiO2 12/21/24 09:00 98.5 98 16 108/66 (80) 96 98.5 12/21/24 08:00 Room Air* 0 21 Physical Exam GEN: Age-appropriate male in no acute distress. Alert. HEENT: Normocephalic atraumatic. Moist mucous membranes. Anicteric sclerae. CV: RRR Respiratory: CTAB ABD: Soft. Nontender nondistended. CT of the abdomen and pelvis: Distended stomach and fluid distributed throughout the large and small bowel without transition point probable enteritis. No evidence of small-bowel obstruction. Labs/Diagnostic Data Labs Test 12/21/24 11:34 12/21/24 10:44 12/20/24 16:33 Range/Units Urine Opiates Screen Neg NEGATIVE Urine Fentanyl Screen Neg NEGATIVE Urine Barbiturates Screen Neg NEGATIVE Urine Phencyclidine Screen Neg NEGATIVE Urine Amphetamines Screen Pos NEGATIVE Urine Benzodiazepines Screen Neg NEGATIVE Urine Cocaine Screen Neg NEGATIVE Urine Cannabinoids Screen Pos NEGATIVE Urine Color Colorless Yellow Urine Clarity Clear Clear Urine pH 5.5 5.0-9.0 Urine Specific [place] 1.006 1.001-1.035 Urine Protein Negative Negative Urine Ketones 1+ H Negative Urine Blood Negative Negative /uL Urine Nitrite Negative Negative Urine Bilirubin Negative Negative Urine Urobilinogen Normal Negative mg/dL Urine Leukocyte Esterase Negative Negative /uL Urine RBC <1 0 - 3 /hpf Urine Microscopic WBC 1 0-3 /HPF Urine Squamous Epithelial Cells None seen <5 /hpf Urine Bacteria None seen None Seen /hpf Urine Glucose Trace Normal mg/dL White Blood Count 10.1 4.4-10.8 10^3/uL Red Blood Count 4.85 4.5-5.90 10^6/uL Hemoglobin 15.4 13.5-17.5 g/dL Hematocrit 45.1 41.0-53.0 % Mean Corpuscular Volume 92.9 80.0-100.0 fL Mean Corpuscular Hemoglobin 31.8 28.0-32.0 pg Mean Corpuscular Hemoglobin Concent 34.3 32.0-36.0 g/dL Red Cell Distribution Width 13.4 11.8-14.3 % Platelet Count 201 140-450 10^3/uL Mean Platelet Volume 8.4 6.9-10.8 fL Neutrophils (%) (Auto) 78.4 37.0-80.0 % Lymphocytes (%) (Auto) 9.6 L 10.0-50.0 % Monocytes (%) (Auto) 8.6 0.0-12.0 % Eosinophils (%) (Auto) 3.1 0.0-7.0 % Basophils (%) (Auto) 0.3 0.0-2.0 % Neutrophils # (Auto) 7.9 1.6-8.6 10 ^3/uL Lymphocytes # (Auto) 1.0 0.4-5.4 10 ^3/uL Monocytes # (Auto) 0.9 0-1.3 10 ^3/uL Eosinophils # (Auto) 0.3 0-0.8 10 ^3/uL Basophils # (Auto) 0 0-0.2 10 ^3/uL Nucleated Red Blood Cells 0.0 % Sodium Level 141 136-145 mmol/L Potassium Level 3.6 3.5-5.1 mmol/L Chloride Level 108 H 98-107 mmol/L Carbon Dioxide Level 25 20-31 mmol/L Anion Gap 8 5-15 Blood Urea Nitrogen 12 9-23 mg/dL Creatinine 1.10 0.700-1.30 mg/dL Glomerular Filtration Rate Calc 86 >90 mL/min BUN/Creatinine Ratio 10.9 10.0-20.0 Serum Glucose 101 74-106 mg/dL Calcium Level 8.3 L 8.7-10.4 mg/dL Total Bilirubin 0.7 0.2-1.0 mg/dL Aspartate Amino Transferase (AST) 26 13-40 U/L Alanine Aminotransferase (ALT) 21 7-40 U/L Alkaline Phosphatase 69 46-116 U/L Total Protein 6.3 5.7-8.2 g/dL Albumin 3.9 3.2-4.8 g/dL Lipase 40 12-53 U/L Assessment 1. Probable gastroenteritis now resolved Plan/Recommendation 1. No indication for surgical intervention at this time. Surgery signing off. Plan discussed with: Patient ALY MUNSON MD Dec 21, 2024 12:22
[2024-12-21] MEDS: cefTRIAXone 1GM/50ML D5W 50 ML IV ONE (13:31)
--- NOTE | 2024-12-21 13:58 | DVH ---
Exam: XY KUB ABDOMEN SINGLE VIEW Indication: intrabdomifluid distributed throughout large and small bowel Comparison: None Technique: 1 radiographic views of the abdomen. Findings: Nonspecific bowel-gas pattern. There is no definite evidence for pneumoperitoneum. No abnormal calcifications noted. Impression: Nonspecific bowel-gas pattern.
[2024-12-21] MEDS: SODIUM CHLORIDE 0.9% 1,000 ML IV SCH (16:38)
[2024-12-22 05:00] VITALS: BP 100/50; PULSE 80; RESP 19; TEMP 100.3; O2SAT 97
[2024-12-22 06:57] LABS: Hematocrit 40.2 % (41.0-53.0); Hemoglobin 13.7 g/dL (13.5-17.5); Mean Corpuscular Hemoglobin 31.6 pg (28.0-32.0); Mean Corpuscular Volume 92.8 fL (80.0-100.0); Nucleated Red Blood Cells % 0.0 %
[2024-12-22 07:20] LABS: Alanine Aminotransferase 24 U/L (7-40); Albumin 3.5 g/dL (3.2-4.8); Alkaline Phosphatase 56 U/L (46-116); Anion Gap 7 (5-15); BUN/Creatinine Ratio 5.8 (10.0-20.0); Calcium 8.7 mg/dL (8.7-10.4); Carbon Dioxide 25 mmol/L (20-31); Glucose 95 mg/dL (74-106); Sodium 143 mmol/L (136-145)
[2024-12-22 07:21] LABS: Bilirubin, Total 0.5 mg/dL (0.2-1.0)
[2024-12-22 07:22] LABS: Blood Urea Nitrogen 6 mg/dL (9-23); Chloride 111 mmol/L (98-107); Potassium 3.4 mmol/L (3.5-5.1); Total Protein 5.6 g/dL (5.7-8.2)
[2024-12-22] MEDS ORDERED: cefTRIAXone 1GM/50ML D5W 50 ML IV SCH (09:00)
--- NOTE | 2024-12-22 15:57 | DVHDSRES ---
Discharge Summary Date of Admission Resident Creating Document: BELIA HARDIN RESIDENT Dec 20, 2024 at 22:06 Date of Discharge: Dec 22, 2024 Admitting Diagnosis Intractable Abdominal Pain Wounds: No wounds at admission Labs/Diagnostic Data: Laboratory Results Test 12/22/24 06:40 12/22/24 04:00 12/21/24 12:40 12/21/24 11:34 Sodium Level 143 mmol/L (136-145) Potassium Level 3.4 mmol/L (3.5-5.1) Chloride Level 111 mmol/L (98-107) Carbon Dioxide Level 25 mmol/L (20-31) Anion Gap 7 (5-15) Blood Urea Nitrogen 6 mg/dL (9-23) Creatinine 1.03 mg/dL (0.700-1.30) Glomerular Filtration Rate Calc 93 mL/min (>90) BUN/Creatinine Ratio 5.8 (10.0-20.0) Serum Glucose 95 mg/dL (74-106) Calcium Level 8.7 mg/dL (8.7-10.4) Total Bilirubin 0.5 mg/dL (0.2-1.0) Aspartate Amino Transferase (AST) 29 U/L (13-40) Alanine Aminotransferase (ALT) 24 U/L (7-40) Alkaline Phosphatase 56 U/L (46-116) Total Protein 5.6 g/dL (5.7-8.2) Albumin 3.5 g/dL (3.2-4.8) White Blood Count 11.6 10^3/uL (4.4-10.8) Red Blood Count 4.33 10^6/uL (4.5-5.90) Hemoglobin 13.7 g/dL (13.5-17.5) Hematocrit 40.2 % (41.0-53.0) Mean Corpuscular Volume 92.8 fL (80.0-100.0) Mean Corpuscular Hemoglobin 31.6 pg (28.0-32.0) Mean Corpuscular Hemoglobin Concent 34.1 g/dL (32.0-36.0) Red Cell Distribution Width 13.4 % (11.8-14.3) Platelet Count 189 10^3/uL (140-450) Mean Platelet Volume 8.6 fL (6.9-10.8) Neutrophils (%) (Auto) 77.3 % (37.0-80.0) Lymphocytes (%) (Auto) 8.6 % (10.0-50.0) Monocytes (%) (Auto) 10.2 % (0.0-12.0) Eosinophils (%) (Auto) 3.8 % (0.0-7.0) Basophils (%) (Auto) 0.1 % (0.0-2.0) Neutrophils # (Auto) 9.0 10 ^3/uL (1.6-8.6) Lymphocytes # (Auto) 1.0 10 ^3/uL (0.4-5.4) Monocytes # (Auto) 1.2 10 ^3/uL (0-1.3) Eosinophils # (Auto) 0.4 10 ^3/uL (0-0.8) Basophils # (Auto) 0 10 ^3/uL (0-0.2) Nucleated Red Blood Cells 0.0 % Hemoglobin A1c 5.3 % A1C (<5.7) Urine Opiates Screen Neg (NEGATIVE) Urine Fentanyl Screen Neg (NEGATIVE) Urine Barbiturates Screen Neg (NEGATIVE) Urine Phencyclidine Screen Neg (NEGATIVE) Urine Amphetamines Screen Pos (NEGATIVE) Urine Benzodiazepines Screen Neg (NEGATIVE) Urine Cocaine Screen Neg (NEGATIVE) Urine Cannabinoids Screen Pos (NEGATIVE) Test 12/21/24 10:44 12/20/24 16:33 Urine Color Colorless (Yellow) Urine Clarity Clear (Clear) Urine pH 5.5 (5.0-9.0) Urine Specific [facility] [place] 1.006 (1.001-1.035) Urine Protein Negative (Negative) Urine Ketones 1+ (Negative) Urine Blood Negative /uL (Negative) Urine Nitrite Negative (Negative) Urine Bilirubin Negative (Negative) Urine Urobilinogen Normal mg/dL (Negative) Urine Leukocyte Esterase Negative /uL (Negative) Urine RBC <1 /hpf (0 - 3) Urine Microscopic WBC 1 /HPF (0-3) Urine Squamous Epithelial Cells None seen /hpf (<5) Urine Bacteria None seen /hpf (None Seen) Urine Glucose Trace mg/dL (Normal) Lipase 40 U/L (12-53) Other Laboratory Tests 12/22/24 06:40 12/22/24 04:00 Brief Hx & Hospital Course: PHI: Mr. Bradley is a 44-year-old male with past medical history of pancreatitis 2023. The patient visit the ER with the complaint of severe abdominal pain for 3 days which is worsen since afternoon today 10/10 intensity, continuous, burning like, localized in epigastric region, aggravated with food, no relieving factors, not radiates; associated with nausea and vomiting 3 times, containing food materials but no blood. Patient denies any recent sick contact, eating outside food before symptoms started. Patient used to smoking cigarettes and marijuana daily. Last smoking marijuana was yesterday. Denies any chest pain, SOB, cough, headache, fever, dysuria or any focal weakness. Admission Course: The on his first day of admission the patient reported improvement of the pain after medications 2/10, nausea and vomit stopped, pt. reported watery diarrhea pre TAVR, foul smell, no mucus. Vital signs were within normal limits. Labs: lipase was 40. Pancreatitis was ruled out. Surgery was consulted for acute abdominal pain. Surgery reported: Probable gastroenteritis now resolved, no indication for surgical intervention at this time. Patient started full liquid diet. In the afternoon, the patient report improvement in diarrhea and abdominal pain. Patient was still under evaluation and still undergoing management. Unfortunately, this morning the patient left against medical advise (AMA). Despite of explaining risks of leaving AMA the patient decided to leave AMA, patient made verbalize understanding to the nursing staff. Discharge plan: Patient left AMA ROS: Could not be performed. Physical Exam: Could not be performed. Problem List during admission: #Gastroenteritis, likely viral. #Possible Gastritis. #Pancreatitis, ruled out. #Possible Cannabis hyperemesis #Substance abuse disorder Case was discussed with Dr. Smith. Consults/Reason for consult Surgery: abdominal pain Condition at Discharge: Undetermined (AMA) Final Diagnosis/Problems List Gastroenteritis, likely viral. Possible Gastritis. Pancreatitis, ruled out. Possible Cannabis hyperemesis Substance abuse disorder Discharge Disposition: AMA SNF Discharge Will this Physician continue t: No Discharge Instruct/Medications Diet: See Comment Diet comment: Patient left AMA. Activity: See Comment Activity comment: Patient left AMA. Follow Up/Referral: Patient left AMA. Medications: Patient left AMA. Scheduled Ondansetron (Zofran), 1 TAB PO Q6HR Pantoprazole Sodium Sesquihydr (Protonix), 40 MG PO DAILY Discharge Statement: Patient went AMA. ASSESSMENT ASSESSMENT Assessment Addendum Addendum Addendum I was physically present for the cruz portions of the service provided to patient by THE RESIDENT. I have reviewed the documentation, discussed the case with resident and agree with the resident's documentation except as noted. Also the patient's clinical case was discussed with the patient's nurse. This medical document was created using an electronic medical record system with computerized dictation system. Although this document has been carefully reviewed, there might still be some phonetic and typographical errors. These areas are purely typographical due to imperfections of the software programs, and do not reflect any compromise in the patient's medical care. Late signature. Date of Service: Dec 22, 2024 Billing Provider: PAXTON SMITH MD Common Visit Codes: 28606-MMB/OBS DISCH DAY >30min BELIA HARDIN RESIDENT Dec 22, 2024 15:57 PAXTON SMITH MD Dec 23, 2024 13:53
== END 2024-12-22 06:52 | disposition left against medical advice (07) | DRG 241 ==
LOC: EDBD 15:19 → ER 15:19 → OVERFLOW 22:06 → CENTRAL 23:11
PROVIDERS: ADMIT Student in an Organized Health Care Education/Training Program; ATTEND Emergency Medicine
DX: K29.70 Gastritis, unspecified, without bleeding (principal); R65.10 Systemic inflammatory response syndrome (SIRS) of non-infectious origin without acute organ dysfunction; A08.4 Viral intestinal infection, unspecified; F19.10 Other psychoactive substance abuse, uncomplicated; F12.90 Cannabis use, unspecified, uncomplicated; T45.0X5A Adverse effect of antiallergic and antiemetic drugs, initial encounter; F17.210 Nicotine dependence, cigarettes, uncomplicated; F15.90 Other stimulant use, unspecified, uncomplicated; Z53.29 Procedure and treatment not carried out because of patient's decision for other reasons; Z83.3 Family history of diabetes mellitus; Z87.19 Personal history of other diseases of the digestive system; Z88.0 Allergy status to penicillin; Y92.89 Other specified places as the place of occurrence of the external cause
CPT/HCPCS: 36415; 74018; 74177; 80053; 80307; 81001; 83036; 83690; 85025; 96361; 96374; 99291; G0378; J2405; J2470; J3490

== ENCOUNTER 2025-02-12 08:46 | Inpatient (IN) | payer MEDICAID ==
[~2025-02-12] VITALS: Ht 188 cm; Wt 69.7 kg
--- NOTE | 2025-02-12 08:57 | ED.PDOC ---
GI ASSESSMENT HPI Comments 44 year old male presents to the ED with a chief complaint of nausea/vomiting onset 2 days. Patient states he has been experiencing nausea/vomiting for the past 2 days as well as epigastric pain. He currently rates pain a 9/10. And has not been able to eat or drink anything due to symptoms. Last marijuana use was yesterday. Denies any PMHx as well as fever, chills, dysuria, hematuria, hematemesis, blood in stool, melena, chest pain,shortness of breath. No other symptoms or modifying factors present at this time. Chief Complaint: Nausea/Vomiting Time Seen by MD: 08:55 Primary Care Provider: UNKNOWN Reviewed Notes: Medications, Allergies Allergies: Coded Allergies: Metoclopramide (Verified Allergy, Intermediate, Rash, 12/21/24) Penicillins (Unverified Allergy, Unknown, 01/10/22) Home Meds Discontinued Scripts Ondansetron (Zofran) 4 Mg Tab, 1 TAB PO Q6HR, #20 TAB Prov:JD TEMPLETON MD 01/11/22 Pantoprazole Sodium Sesquihydr (Protonix) 40 Mg Tab, 40 MG PO DAILY, #30 TAB Prov:JD TEMPLETON MD 01/11/22 Information Source: Patient Mode of Arrival: Ambulatory Timing: Days Duration: Since onset Prehospital treatment: None Quality: Sharp Severity: Moderate Recent: None Recent Hx of: None Pain Location: Epigastric Modifying Factors: Nothing Associated sign and symptoms: Nausea, Vomiting, Abdominal Pain Past Medical History PAST MEDICAL HISTORY: Denies Surgical History: Denies all surgeries Family History Family History: Family hx of DM Social History Smoker: Cigarettes Alcohol: Occasionally Drugs: Marijuana Lives In: Home Constitutional: denies: chills, diaphoresis, fatigue, fever, malaise, sweats, weakness, others EENTM: denies: blurred vision, double vision, ear bleeding, ear discharge, ear drainage, ear pain, ear ringing, eye pain, eye redness, hearing loss, mouth pain, mouth swelling, nasal discharge, nose bleeding, nose congestion, nose pain, photophobia, tearing, throat pain, throat swelling, voice changes, others Respiratory: denies: cough, hemoptysis, orthopnea, SOB at rest, shortness of breath, SOB with excertion, stridor, wheezing, others Cardiovascular: denies: chest pain, dizzy spells, diaphoresis, Dyspnea on exertion, edema, irregular heart beat, left arm pain, lightheadedness, palpitations, PND, syncope, others Gastrointestinal: reports: abdominal pain, nausea, poor appetite, vomiting; de nies: abdomen distended, blood streaked bowels, constipated, diarrhea, dysphagia, difficulty swallowing, hematemesis, melena, poor fluid intake, rectal bleeding, rectal pain, others Genitourinary: denies: burning, dysuria, flank pain, frequency, hematuria, incontinence, penile discharge, penile sore, pain, testicle pain, testicle swelling, urgency, others Neurological: denies: dizziness, fainting, headache, left sided numbness, left sided weakness, numbness, paresthesia, pre-existing deficit, right sided numbness, right sided weakness, seizure, speech problems, tingling, tremors, weakness, others Musculoskeletal: denies: back pain, gout, joint pain, joint swelling, muscle pain, muscle stiffness, neck pain, others Integumetry: denies: bruises, change in color, change in hair/nails, dryness, laceration, lesions, lumps, rash, wounds, others Allergic/Immunocompromised: denies: Difficulty Healing, Frequent Infections, Hives, Itching, others Hematologic/Lymphatic: denies: anemia, blood clots, easy bleeding, easy bruising, swollen glands, others Endocrine: denies: excessive hunger, excessive sweating, excessive thirst, excessive urination, flushing, intolerance to cold, intolerance to heat, unexplained weight gain, unexplained weight loss, others Psychiatric: denies: anxiety, bipolar disorder, depression, hopeless, panic disorder, schizophrenia, sleepless, suicidal, others All Other Systems: Reviewed and Negative Physical Exam General Appearance: Moderate Distress HEENT: Normal ENT Inspection, Pharynx Normal, TMs Normal Neck: Full Range of Motion, Non-Tender, Normal, Normal Inspection Respiratory: Chest Non-Tender, Lungs Clear, No Accessory Muscle Use, No Respiratory Distress, Normal Breath Sounds Cardiovascular: No Edema, No JVD, No Murmur, No Gallop, Normal Peripheral Pulses, Regular Rate/Rhythm Breast Exam: Deferred Gastrointestinal: No Organomegaly, Non Tender, No Pulsatile Mass, Normal Bowel Sounds, Soft Genitalia: Deferred Pelvic: Deferred Rectal: Deferred Extremities: No calf tenderness, Normal capillary refill, Normal inspection, Normal range of motion, Non-tender, No pedal edema Musculoskeletal : Apperance: Normal Neurologic: Alert, blintze roller II-XII nml as Tested, No Motor Deficits, Normal Affect, Normal Mood, No Sensory Deficits Cerebellar Function: Normal Reflexes: Normal Skin: Dry, Normal Color, Warm Peripheral Pulses: 3+ Radial (R), 3+ Radial (L) Lymphatic: No Adenopathy Was a procedure done? Was a procedure done?: No GI differential Dx Differential Diagnosis: Constipation, Diverticular disease, Esophagitis, Gastritis/PUD, Gastroenteritis X-Ray, Labs, Meds, VS Vital Signs Date Time Temp Pulse Resp B/P (MAP) Pulse Ox O2 Delivery O2 Flow Rate FiO2 02/12/25 11:28 98.9 87 16 134/87 (103) 98 98.9 02/12/25 09:20 98 18 96 Room Air 02/12/25 09:20 93 18 133/80 (97) 96 02/12/25 08:48 98.9 110 16 120/90 95 98.9 Lab Test 02/12/25 09:10 02/12/25 09:09 Range/Units Urine Opiates Screen Neg NEGATIVE Urine Fentanyl Screen Neg NEGATIVE Urine Barbiturates Screen Neg NEGATIVE Urine Phencyclidine Screen Neg NEGATIVE Urine Amphetamines Screen Pos NEGATIVE Urine Benzodiazepines Screen Neg NEGATIVE Urine Cocaine Screen Neg NEGATIVE Urine Cannabinoids Screen Pos NEGATIVE White Blood Count 12.0 H 4.4-10.8 10^3/uL Red Blood Count 4.73 4.5-5.90 10^6/uL Hemoglobin 15.2 13.5-17.5 g/dL Hematocrit 43.9 41.0-53.0 % Mean Corpuscular Volume 92.8 80.0-100.0 fL Mean Corpuscular Hemoglobin 32.1 H 28.0-32.0 pg Mean Corpuscular Hemoglobin Concent 34.5 32.0-36.0 g/dL Red Cell Distribution Width 13.7 11.8-14.3 % Platelet Count 203 140-450 10^3/uL Mean Platelet Volume 8.6 6.9-10.8 fL Neutrophils (%) (Auto) 77.4 37.0-80.0 % Lymphocytes (%) (Auto) 12.4 10.0-50.0 % Monocytes (%) (Auto) 8.7 0.0-12.0 % Eosinophils (%) (Auto) 1.3 0.0-7.0 % Basophils (%) (Auto) 0.2 0.0-2.0 % Neutrophils # (Auto) 9.3 H 1.6-8.6 10 ^3/uL Lymphocytes # (Auto) 1.5 0.4-5.4 10 ^3/uL Monocytes # (Auto) 1.0 0-1.3 10 ^3/uL Eosinophils # (Auto) 0.2 0-0.8 10 ^3/uL Basophils # (Auto) 0 0-0.2 10 ^3/uL Nucleated Red Blood Cells 0.0 % Sodium Level 143 136-145 mmol/L Potassium Level 4.3 3.5-5.1 mmol/L Chloride Level 108 H 98-107 mmol/L Carbon Dioxide Level 29 20-31 mmol/L Anion Gap 6 5-15 Blood Urea Nitrogen < 5 L 9-23 mg/dL Creatinine 1.12 0.700-1.30 mg/dL Glomerular Filtration Rate Calc 84 >90 mL/min BUN/Creatinine Ratio 4.5 L 10.0-20.0 Serum Glucose 78 74-106 mg/dL Calcium Level 9.0 8.7-10.4 mg/dL Current Medications Medications (Trade) Dose Ordered Sig/Stefany Route Start Time Stop Time Status Last Admin Sodium Chloride 1,000 ml @ 1,000 mls/hr Q1H ONCE IV 02/12/25 11:15 02/12/25 12:14 DC 02/12/25 11:33 Levofloxacin/ Dextrose 100 ml @ 100 mls/hr ONCE ONCE IV 02/12/25 11:15 02/12/25 12:14 DC 02/12/25 11:35 Patient alert. Came in because of nausea vomiting. Vitals stable. Answering questions. WBC elevated. Hemoglobin within normal limits. Urine shows methamphetamine marijuana. Drug induced colitis pain Counseled patient on effects of taking drugs for 15 minutes. Explained to the patient. [address] [address] Ph: [phone] DIAGNOSTIC IMAGING Diagnostic Imaging Report : [id number] Signed PATIENT: KAYLAH CAMPBELL ACCT: [id number] UNIT: [id number] : 1980 LOC: ER ROOM / BED: / AGE / SEX: 44 / M ADM STATUS: REG ER SERVICE 1044 ORDERING PHYSICIAN: ROSIE ARGUELLES MD PROCEDURE(s): ABPL - CT AB PEL WO CON-NO ORAL OR IV REASON: colitis ORDER NUMBER(s): [id number], ACCESSION NUMBER(s): [id number] CLINICAL INFORMATION: 44 years old, Male; colitis. TECHNIQUE: Axial CT images of the abdomen and pelvis were obtained without IV contrast. Coronal and sagittal reformatted images were obtained, reviewed, and stored. Evaluation of the parenchymal organs is limited without IV contrast. Evaluation of the bowel and mesentery is limited without oral contrast. All CT scans at this medical facility are performed using dose modulation techniques as appropriate to a performed exam including the following: Automated exposure control was utilized; adjustment of the MA and/or KV according to patient size; and use of iterative reconstruction technique. CTDIvol = 5.21 mGy DLP = 295.19 mGy-cm COMPARISON: CT ABD PELVIS WO CONTRAST on DOS: 01/10/22 FINDINGS: The examination is limited due to motion artifact. Lung bases: Lung bases are clear. Liver: Grossly unremarkable in its noncontrast enhanced appearance. No abnormal density or focal lesion identified. Biliary: No calcified gallstones or biliary ductal dilatation. Spleen: Unremarkable. Pancreas: Grossly unremarkable given the limitations of the exam. Adrenal glands: Unremarkable. No mass. Kidneys: No hydronephrosis. No renal or ureteral calculi. Aorta/Vascular: Scattered atherosclerotic calcification. No abdominal aortic aneurysm. Retroperitoneum: No mass or lymphadenopathy. Bowel/mesentery: Nonspecific nondilated fluid-filled small bowel loops. No small bowel obstruction. Appendix is visualized and appears unremarkable. No free air or free fluid visualized Pelvic organs: Grossly unremarkable. Bladder: Mildly distended bladder. Abdominal wall: No mass or hernia. Bones: No acute fracture or suspicious intraosseous lesion. IMPRESSION: 1. Motion limited study. 2. Nonspecific nondilated fluid-filled small bowel loops. Findings may be seen with ileus or enteritis in the appropriate clinical setting. No small bowel obstruction. 3. Appendix is visualized and appears unremarkable. 4. No hydronephrosis and no renal or ureteral calculi visualized. ATED BY: SAQIB ALSTON DO DICTATED DATE/TIME: 02/12/251123 SIGNED BY: SAQIB ALSTON DO SIGNED DATE/TIME: 02/12/251123 CC: Time of 1ST Reevaluation: : Reevaluation 1ST: Unchanged Patient Education/Counseling: Diagnosis, Treatment, Prognosis Family Education/Counseling: No Family Present SEPSIS Sepsis Screen Date sepsis recognized/suspect: Feb 12, 2025 Time Sepsis recognized/suspect: 0850 Recent Procedure: No On Antibiotic Therapy: No Respiratory Rate >20: No Heart Rate >90: Yes Temp<36 C (96.8 F) or >38.3 C: No SBP <90 or MAP <65 mmHG: No New Acute Mental Status Change: No Is the patient on CPAP, BIPAP,: No Physician Orders Ct Ab Pel Wo Con-No Oral Or Iv (02/12/25 10:44) Sodium Chloride 0.9% (02/12/25 11:15) Vital Signs Date Time Temp Pulse Resp B/P (MAP) Pulse Ox O2 Delivery O2 Flow Rate FiO2 02/12/25 11:28 98.9 87 16 134/87 (103) 98 98.9 02/12/25 09:20 98 18 96 Room Air 02/12/25 09:20 93 18 133/80 (97) 96 02/12/25 08:48 98.9 110 16 120/90 95 98.9 Laboratory Tests Test 02/12/25 09:09 White Blood Count 12.0 10^3/uL (4.4-10.8) H Medications Medications Dose Ordered Sig/Stefany Route Start Time Stop Time Status Last Admin Dose Admin Levofloxacin/ Dextrose 100 ml @ 100 mls/hr ONCE ONCE IV 02/12/25 11:15 02/12/25 12:14 DC 02/12/25 11:35 Sodium Chloride 1,000 ml @ 1,000 mls/hr Q1H ONCE IV 02/12/25 11:15 02/12/25 12:14 DC 02/12/25 11:33 Departure 1 Departure Time of Disposition: 11:02 Impression: Primary Impression: Non-specific colitis Disposition: ADMITTED INPATIENT Admit to: Med Surg Condition: Guarded Critical Care Note Critical Care Time?: No Stability Stability form required: No Heart Score Heart Score: Heart Score Response (Comments) Value History N/A 0 EKG N/A 0 Age N/A 0 Risk Factors N/A 0 Troponin N/A 0 Total 0 I personally scribed for ROSIE ARGUELLES MD ([email or web address]) on 02/12/25 at 08:57. Electronically submitted by Aline Reynoso ([email or web address]). I personally scribed for ROSIE ARGUELLES MD ([email or web address]) on 02/12/25 at 13:53. Electronically submitted by Aline Reynoso ([email or web address]). ROSIE ARGUELLES MD Feb 12, 2025 08:57
[2025-02-12] MEDS: ONDANSETRON HCL 4 MG/2 ML VIAL IV ONE (09:24)
[2025-02-12 09:55] LABS: Amphetamine Screen, Urine Pos (NEGATIVE); Barbiturate Scree,Urine Neg (NEGATIVE); Benzodiazephine Screen, Urine Neg (NEGATIVE); Cannabinoid Screen, Urine Pos (NEGATIVE); Cocaine Screen, Urine Neg (NEGATIVE); Opiate Scree,Urine Neg (NEGATIVE); Phencyclidine Screen, Urine Neg (NEGATIVE)
[2025-02-12 10:10] LABS: Hematocrit 43.9 % (41.0-53.0); Hemoglobin 15.2 g/dL (13.5-17.5); Mean Corpuscular Hemoglobin 32.1 pg (28.0-32.0); Mean Corpuscular Volume 92.8 fL (80.0-100.0); Nucleated Red Blood Cells % 0.0 %
[2025-02-12 10:21] LABS: Potassium 4.3 mmol/L (3.5-5.1); Sodium 143 mmol/L (136-145)
[2025-02-12 10:22] LABS: Anion Gap 6 (5-15); Calcium 9.0 mg/dL (8.7-10.4); Carbon Dioxide 29 mmol/L (20-31); Chloride 108 mmol/L (98-107)
[2025-02-12 10:27] LABS: BUN/Creatinine Ratio 4.5 (10.0-20.0); Blood Urea Nitrogen < 5 mg/dL (9-23); Glucose 78 mg/dL (74-106)
[2025-02-12] MEDS: SODIUM CHLORIDE 0.9% 1,000 ML IV ONE ×3 (11:15→14:20)
--- NOTE | 2025-02-12 11:26 | DVH ---
CLINICAL INFORMATION: 44 years old, Male; colitis. TECHNIQUE: Axial CT images of the abdomen and pelvis were obtained without IV contrast. Coronal and s agittal reformatted images were obtained, reviewed, and stored. Evaluation of the parenchymal organs is limited without IV contrast. Evaluation of the bowel and mesentery is limited without oral contras t. All CT scans at this medical facility are performed using dose modulation techniques as appropriat e to a performed exam including the following: Automated exposure control was utilized; adjustment of the MA and/or KV according to patient size; and use of iterative reconstruction technique. CTDIvol = 5.21 mGy DLP = 295.19 mGy-cm COMPARISON: CT ABD PELVIS WO CONTRAST on DOS: 01/10/22 FINDINGS: The examination is limited due to motion artifact. Lung bases: Lung bases are clear. Liver: Grossly unremarkable in its noncontrast enhanced appearance. No abnormal density or focal lesi on identified. Biliary: No calcified gallstones or biliary ductal dilatation. Spleen: Unremarkable. Pancreas: Grossly unremarkable given the limitations of the exam. Adrenal glands: Unremarkable. No mass. Kidneys: No hydronephrosis. No renal or ureteral calculi. Aorta/Vascular: Scattered atherosclerotic calcification. No abdominal aortic aneurysm. Retroperitoneum: No mass or lymphadenopathy. Bowel/mesentery: Nonspecific nondilated fluid-filled small bowel loops. No small bowel obstruction. A ppendix is visualized and appears unremarkable. No free air or free fluid visualized Pelvic organs: Grossly unremarkable. Bladder: Mildly distended bladder. Abdominal wall: No mass or hernia. Bones: No acute fracture or suspicious intraosseous lesion. IMPRESSION: 1. Motion limited study. 2. Nonspecific nondilated fluid-filled small bowel loops. Findings may be seen with ileus or enteriti s in the appropriate clinical setting. No small bowel obstruction. 3. Appendix is visualized and appears unremarkable. 4. No hydronephrosis and no renal or ureteral calculi visualized.
[2025-02-12] MEDS ORDERED: DOCUSATE SOD 100 MG CAP PO PRN (13:15)
[2025-02-12] MEDS ORDERED: ACETAMINOPHEN 325 MG TAB PO PRN (13:15)
[2025-02-12] MEDS ORDERED: MORPHINE SULFATE INJ 2 MG/ml SYRG IV PRN (13:15)
[2025-02-12] MEDS ORDERED: ONDANSETRON HCL 4 MG/2 ML VIAL IV PRN (13:15)
[2025-02-12] MEDS ORDERED: METOCLOPRAMIDE HCL 5MG/ml INJ 2ml VIAL IV PRN (13:30)
--- NOTE | 2025-02-12 13:32 | DVHHP2 ---
History of Present Illness Reason for Visit: Nausea and vomiting History of Present Illness Durga Bradley is a 44-year-old male with no significant past medial history who came to the hospital for nausea, vomiting, and abdominal pain. Patient states Past Surgical History: None Smoke: <1 pack per day ALCOHOL: none Drugs: Marijuana (Daily) Lives: with Family Domestic Violence: Neg Review of Systems Constitutional: No: Fever, Chills, Sweats, Weakness, Malaise, Other Eyes: No: Pain, Vision change, Conjunctivae inflammation, Eyelid inflammation, Other, Redness ENT: No: Ear pain, Ear discharge, Nose pain, Nose discharge, Nose congestion, Mouth pain, Mouth swelling, Throat pain, Throat swelling, Other Respiratory: No: Cough, Dry, Shortness of breath, SOB with excertion, Wheezing, Hemoptysis, Pleuritic Pain, Sputum, Wheezing, Other Cardiovascular: No: Chest Pain, Palpitations, Orthopnea, Paroxysmal Noc. Dyspnea, Edema, Lt Headedness, Other Gastrointestinal: Nausea, Vomiting, Abdominal Pain; No: Diarrhea, Constipation, Melena, Hematochezia, Other Genitourinary: No Dysuria, No Frequency, No Incontinence, No Hematuria, No Retention, No Other Musculoskeletal: No: other, neck pain, shoulder pain, arm pain, back pain, hand pain, leg pain, foot pain Skin: No: Rash, Lesions, Jaundice, Bruising, Other Neurological: No: Weakness, Numbness, Incoordination, Change in speech, Confusion, Seizures, Other Allergies: Coded Allergies: Metoclopramide (Verified Allergy, Intermediate, Rash, 12/21/24) Penicillins (Unverified Allergy, Unknown, 01/10/22) Medications Current Medications Medications Dose Ordered Sig/Stefany Route Start Time Stop Time Status Last Admin Dose Admin Acetaminophen/ Hydrocodone Bitart 1 tab Q4HP PRN PO 02/12/25 13:15 UNV Ondansetron HCl 4 mg Q4HP PRN IV 02/12/25 13:15 UNV Docusate Sodium 100 mg BIDPRN PRN PO 02/12/25 13:15 UNV Acetaminophen 650 mg Q6HP PRN PO 02/12/25 13:15 UNV Morphine Sulfate 2 mg Q4HPRN PRN IV 02/12/25 13:15 UNV Metoclopramide HCl 10 mg Q6HPRN PRN IV 02/12/25 13:30 UNV Exam Vital Signs Vital Signs Date Time Temp Pulse Resp B/P (MAP) Pulse Ox O2 Delivery O2 Flow Rate FiO2 02/12/25 11:28 98.9 87 16 134/87 (103) 98 98.9 02/12/25 09:20 Room Air General Appearance: Alert, Oriented X3, Cooperative, moderate distress HEENT: Atraumatic, PERRLA, Other (mucous membr dry) Respiratory: Clear to auscultation, Normal air movement Cardiovascular: Regular rate, Normal S1, Normal S2 Abdominal: Normal bowel sounds, Soft, Other (LUQ tenderness on palpitations) Extremities: No clubbing, No cyanosis, No edema, Normal pulses Skin: No rashes, No breakdown, No significant lesion Neuro: Normal gait, Normal speech, Strength at 5/5 X4 ext, Normal tone Psych/Mental Status: Mental status NL, Mood NL Labs/Xrays Labs Test 02/12/25 09:10 02/12/25 09:09 Range/Units Urine Opiates Screen Neg NEGATIVE Urine Fentanyl Screen Neg NEGATIVE Urine Barbiturates Screen Neg NEGATIVE Urine Phencyclidine Screen Neg NEGATIVE Urine Amphetamines Screen Pos NEGATIVE Urine Benzodiazepines Screen Neg NEGATIVE Urine Cocaine Screen Neg NEGATIVE Urine Cannabinoids Screen Pos NEGATIVE White Blood Count 12.0 H 4.4-10.8 10^3/uL Red Blood Count 4.73 4.5-5.90 10^6/uL Hemoglobin 15.2 13.5-17.5 g/dL Hematocrit 43.9 41.0-53.0 % Mean Corpuscular Volume 92.8 80.0-100.0 fL Mean Corpuscular Hemoglobin 32.1 H 28.0-32.0 pg Mean Corpuscular Hemoglobin Concent 34.5 32.0-36.0 g/dL Red Cell Distribution Width 13.7 11.8-14.3 % Platelet Count 203 140-450 10^3/uL Mean Platelet Volume 8.6 6.9-10.8 fL Neutrophils (%) (Auto) 77.4 37.0-80.0 % Lymphocytes (%) (Auto) 12.4 10.0-50.0 % Monocytes (%) (Auto) 8.7 0.0-12.0 % Eosinophils (%) (Auto) 1.3 0.0-7.0 % Basophils (%) (Auto) 0.2 0.0-2.0 % Neutrophils # (Auto) 9.3 H 1.6-8.6 10 ^3/uL Lymphocytes # (Auto) 1.5 0.4-5.4 10 ^3/uL Monocytes # (Auto) 1.0 0-1.3 10 ^3/uL Eosinophils # (Auto) 0.2 0-0.8 10 ^3/uL Basophils # (Auto) 0 0-0.2 10 ^3/uL Nucleated Red Blood Cells 0.0 % Sodium Level 143 136-145 mmol/L Potassium Level 4.3 3.5-5.1 mmol/L Chloride Level 108 H 98-107 mmol/L Carbon Dioxide Level 29 20-31 mmol/L Anion Gap 6 5-15 Blood Urea Nitrogen < 5 L 9-23 mg/dL Creatinine 1.12 0.700-1.30 mg/dL Glomerular Filtration Rate Calc 84 >90 mL/min BUN/Creatinine Ratio 4.5 L 10.0-20.0 Serum Glucose 78 74-106 mg/dL Calcium Level 9.0 8.7-10.4 mg/dL TECHNIQUE: Axial CT images of the abdomen and pelvis were obtained without IV contrast. FINDINGS: The examination is limited due to motion artifact. Lung bases: Lung bases are clear. Liver: Grossly unremarkable in its noncontrast enhanced appearance. No abnormal density or focal lesion identified. Biliary: No calcified gallstones or biliary ductal dilatation. Spleen: Unremarkable. Pancreas: Grossly unremarkable given the limitations of the exam. Adrenal glands: Unremarkable. No mass. Kidneys: No hydronephrosis. No renal or ureteral calculi. Aorta/Vascular: Scattered atherosclerotic calcification. No abdominal aortic a neurysm. Retroperitoneum: No mass or lymphadenopathy. Bowel/mesentery: Nonspecific nondilated fluid-filled small bowel loops. No small bowel obstruction. Appendix is visualized and appears unremarkable. No free air or free fluid visualized Pelvic organs: Grossly unremarkable. Bladder: Mildly distended bladder. Abdominal wall: No mass or hernia. Bones: No acute fracture or suspicious intraosseous lesion. IMPRESSION: 1. Motion limited study. 2. Nonspecific nondilated fluid-filled small bowel loops. Findings may be seen with ileus or enteritis in the appropriate clinical setting. No small bowel obstruction. 3. Appendix is visualized and appears unremarkable. 4. No hydronephrosis and no renal or ureteral calculi visualized. SEPSIS Sepsis Screen Date sepsis recognized/suspect: Feb 12, 2025 Time Sepsis recognized/suspect: 0850 Recent Procedure: No On Antibiotic Therapy: No Respiratory Rate >20: No Heart Rate >90: Yes Temp<36 C (96.8 F) or >38.3 C: No SBP <90 or MAP <65 mmHG: No New Acute Mental Status Change: No Is the patient on CPAP, BIPAP,: No Physician Orders Ct Ab Pel Wo Con-No Oral Or Iv (02/12/25 10:44) Sodium Chloride 0.9% (02/12/25 11:15) Admit (02/12/25 13:03) Code Status (02/12/25 13:03) Hydrocodone-Acet 5/325mg Tab ([place] 5/32 (02/12/25 13:15) Ondansetron Hcl (Zofran) (02/12/25 13:15) Docusate Sodium Capsule (Colace Capsule) (02/12/25 13:15) Complete Blood Count (02/13/25 04:00) Comprehensive Metabolic Panel (02/13/25 04:00) Condition: Serious (02/12/25 13:03) Acetaminophen Tablet (Tylenol Tablet) (02/12/25 13:15) Clear Liq Diet (02/12/25 Lunch) Morphine Sulfate Injection (02/12/25 13:15) Metoclopramide Injection (Reglan Injecti (02/12/25 13:30) Vital Signs Date Time Temp Pulse Resp B/P (MAP) Pulse Ox O2 Delivery O2 Flow Rate FiO2 02/12/25 11:28 98.9 87 16 134/87 (103) 98 98.9 02/12/25 09:20 98 18 96 Room Air 02/12/25 09:20 93 18 133/80 (97) 96 02/12/25 08:48 98.9 110 16 120/90 95 98.9 Laboratory Tests Test 02/12/25 09:09 White Blood Count 12.0 10^3/uL (4.4-10.8) H Medications Medications Dose Ordered Sig/Stefany Route Start Time Stop Time Status Last Admin Dose Admin Levofloxacin/ Dextrose 100 ml @ 100 mls/hr ONCE ONCE IV 02/12/25 11:15 02/12/25 12:14 DC 02/12/25 11:35 100 MLS/HR Sodium Chloride 1,000 ml @ 1,000 mls/hr Q1H ONCE IV 02/12/25 11:15 02/12/25 12:14 DC 02/12/25 11:33 1,000 MLS/HR Assessment/Plan Assessment/Plan Assessment: Enteritis, Possible ileus, Leukocytosis, Plan: Admit to Med-Surg, IV hydration, IV antibiotics, Clear liquid diet, IV Protonix, Carafate, Plan discussed with: Patient My Orders Orders - HELLEN MATOS Procedure Category Date Status Time Admit ADMIT 02/12/25 Transmitted 13:03 Code Status CODE 02/12/25 Transmitted 13:03 Hydrocodone-Acet PHA 02/12/25 Logged 5/325mg Tab ([place] 13:15 Ondansetron Hcl PHA 02/12/25 Logged (Zofran) 13:15 Docusate Sodium PHA 02/12/25 Logged Capsule (Colace 13:15 Complete Blood Count LAB 02/13/25 Verified 04:00 Comprehensive LAB 02/13/25 Verified Metabolic Panel 04:00 Condition: Serious SANJAY 02/12/25 In Process 13:03 Acetaminophen Tablet PHA 02/12/25 Logged (Tylenol Tablet) 13:15 Clear Liq Diet DIET 02/12/25 Transmitted Lunch Morphine Sulfate PHA 02/12/25 Logged Injection 13:15 Metoclopramide PHA 02/12/25 Logged Injection (Reglan 13:30 Date of Service: Feb 12, 2025 Billing Provider: HELLEN MATOS Common Visit Codes: [id number] INP/OBS CARE (MOD) HELLEN MATOS Feb 12, 2025 13:31
[2025-02-12] MEDS: PANTOPRAZOLE 40 MG/10 ML VIAL INJ IV ONE (14:19)
[2025-02-12] MEDS: HYDROcodone-ACET 5/325MG TAB PO PRN (14:21)
[2025-02-12 14:29] VITALS: PULSE 87; RESP 16; O2SAT 98
[2025-02-12 15:10] VITALS: BP 111/66; PULSE 89; RESP 17; TEMP 98.6; O2SAT 98
[2025-02-12] MEDS ORDERED: SUCRALFATE 1 GM TAB PO SCH (17:00)
[2025-02-12] MEDS ORDERED: PANTOPRAZOLE 40 MG/10 ML VIAL INJ IV SCH (22:00)
== END 2025-02-12 16:02 | disposition left against medical advice (07) | DRG 247 ==
LOC: ER 08:46 → OVERFLOW 13:03
PROVIDERS: ADMIT Nurse Practitioner Family; ATTEND Nurse Practitioner Family
DX: K56.7 Ileus, unspecified (principal); D72.829 Elevated white blood cell count, unspecified; K52.9 Noninfective gastroenteritis and colitis, unspecified; F17.210 Nicotine dependence, cigarettes, uncomplicated; F12.90 Cannabis use, unspecified, uncomplicated; Z53.29 Procedure and treatment not carried out because of patient's decision for other reasons; Z88.0 Allergy status to penicillin; Z88.8 Allergy status to other drugs, medicaments and biological substances; Z83.3 Family history of diabetes mellitus
CPT/HCPCS: 36415; 74176; 80048; 80307; 85025; 96365; 96375; G0378; J1956; J2470; J3490

== ENCOUNTER 2025-03-21 03:08 | Emergency (ER) | payer MEDICAID ==
[~2025-03-21] VITALS: Ht 185.4 cm; Wt 77.3 kg
--- NOTE | 2025-03-21 03:20 | ED.PDOC ---
GI ASSESSMENT HPI Comments 45 year old male with PMHx pancreatitis presents to the ED with a chief compliant of abdominal pain onset today (03/21/25). Per EMS, patient woke up experiencing sharp epigastric pain as well as nausea, vomiting. Patient currently rates pain 03/15. Patient was admitted at [facility] for similar and left AMA on 12/22/24, was seen in this ED on 02/12/25 for similar symptoms. Patient is a poor historian. Denies fever, chills, diarrhea, constipation, dizziness, headache, chest pain, dysuria, hematuria, hematemesis, melena. No other symptoms or modifying factors present at this time. Time Seen by MD: 03:15 Primary Care Provider: UNKNOWN Reviewed Notes: Medications, Allergies Allergies: Coded Allergies: Metoclopramide (Verified Allergy, Intermediate, Rash, 12/21/24) Penicillins (Unverified Allergy, Unknown, 01/10/22) Home Meds Active Scripts Gabapentin (Once-Daily) (Gabapentin) 300 Mg Tab, 300 MG PO Q6HP PRN, #30 TAB Prov:ELMER DEVINE MD 03/21/25 Famotidine (PEPCID TABLET) 20 Mg Tb, 1 TAB PO BID PRN, #180 TAB 3 Refills Prov:ELMER DEVINE MD 03/21/25 Information Source: Patient, Emergency Med Personnel Timing: Hours Duration: Since onset Prehospital treatment: None Quality: Sharp Severity: Moderate Recent: None Recent Hx of: None Pain Location: Epigastric Modifying Factors: Nothing Associated sign and symptoms: Nausea, Vomiting, Abdominal Pain Past Medical History Past Medical History (Other): pancreatitis Surgical History: Denies all surgeries Family History Family History: Family hx of DM Social History Smoker: Cigarettes Alcohol: Occasionally Drugs: Marijuana Lives In: Home Constitutional: denies: chills, diaphoresis, fatigue, fever, malaise, sweats, weakness, others EENTM: denies: blurred vision, double vision, ear bleeding, ear discharge, ear drainage, ear pain, ear ringing, eye pain, eye redness, hearing loss, mouth pain, mouth swelling, nasal discharge, nose bleeding, nose congestion, nose pain, photophobia, tearing, throat pain, throat swelling, voice changes, others Respiratory: denies: cough, hemoptysis, orthopnea, SOB at rest, shortness of breath, SOB with excertion, stridor, wheezing, others Cardiovascular: denies: chest pain, dizzy spells, diaphoresis, Dyspnea on exertion, edema, irregular heart beat, left arm pain, lightheadedness, palpitations, PND, syncope, others Gastrointestinal: denies: abdomen distended, abdominal pain, blood streaked bowels, constipated, diarrhea, dysphagia, difficulty swallowing, hematemesis, melena, nausea, poor appetite, poor fluid intake, rectal bleeding, rectal pain, vomiting, others Genitourinary: denies: burning, dysuria, flank pain, frequency, hematuria, incontinence, penile discharge, penile sore, pain, testicle pain, testicle swelling, urgency, others Neurological: denies: dizziness, fainting, headache, left sided numbness, left sided weakness, numbness, paresthesia, pre-existing deficit, right sided numbness, right sided weakness, seizure, speech problems, tingling, tremors, weakness, others Musculoskeletal: denies: back pain, gout, joint pain, joint swelling, muscle pain, muscle stiffness, neck pain, others Integumetry: denies: bruises, change in color, change in hair/nails, dryness, laceration, lesions, lumps, rash, wounds, others Allergic/Immunocompromised: denies: Difficulty Healing, Frequent Infections, Hives, Itching, others Hematologic/Lymphatic: denies: anemia, blood clots, easy bleeding, easy bruising, swollen glands, others Endocrine: denies: excessive hunger, excessive sweating, excessive thirst, excessive urination, flushing, intolerance to cold, intolerance to heat, unexpla ined weight gain, unexplained weight loss, others Psychiatric: denies: anxiety, bipolar disorder, depression, hopeless, panic disorder, schizophrenia, sleepless, suicidal, others All Other Systems: Reviewed and Negative Physical Exam General Appearance: Normal HEENT: Normal ENT Inspection, Pharynx Normal, TMs Normal Neck: Full Range of Motion, Non-Tender, Normal, Normal Inspection Respiratory: Chest Non-Tender, Lungs Clear, No Accessory Muscle Use, No Respiratory Distress, Normal Breath Sounds Cardiovascular: No Edema, No JVD, No Murmur, No Gallop, Normal Peripheral Pulses, Regular Rate/Rhythm Breast Exam: Deferred Gastrointestinal: No Organomegaly, Non Tender, No Pulsatile Mass, Normal Bowel Sounds, Soft Genitalia: Deferred Pelvic: Deferred Rectal: Deferred Extremities: No calf tenderness, Normal capillary refill, Normal inspection, Normal range of motion, Non-tender, No pedal edema Musculoskeletal : Apperance: Normal Neurologic: Alert, 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 Was a procedure done?: No GI differential Dx Differential Diagnosis: Appendicitis, Cholangitis, Cholecystitis, Diverticular disease, Gastritis/PUD, Gastroenteritis, GI hemorrhage, Pancreatitis, Dehydration, Diabetes/ DKA, Esophageal Varicies, Stress Ulcer, Other X-Ray, Labs, Meds, VS Vital Signs Date Time Temp Pulse Resp B/P (MAP) Pulse Ox O2 Delivery O2 Flow Rate FiO2 03/21/25 04:22 66 16 115/72 03/21/25 03:52 70 18 128/78 03/21/25 03:45 98.4 70 16 128/78 (95) 98 98.4 03/21/25 03:20 98.5 80 18 154/99 98 98.5 Lab Test 03/21/25 03:25 Range/Units White Blood Count 7.7 4.4-10.8 10^3/uL Red Blood Count 4.76 4.5-5.90 10^6/uL Hemoglobin 15.3 13.5-17.5 g/dL Hematocrit 44.4 41.0-53.0 % Mean Corpuscular Volume 93.2 80.0-100.0 fL Mean Corpuscular Hemoglobin 32.2 H 28.0-32.0 pg Mean Corpuscular Hemoglobin Concent 34.6 32.0-36.0 g/dL Red Cell Distribution Width 14.1 11.8-14.3 % Platelet Count 216 140-450 10^3/uL Mean Platelet Volume 8.0 6.9-10.8 fL Neutrophils (%) (Auto) 75.3 37.0-80.0 % Lymphocytes (%) (Auto) 18.1 10.0-50.0 % Monocytes (%) (Auto) 5.2 0.0-12.0 % Eosinophils (%) (Auto) 0.9 0.0-7.0 % Basophils (%) (Auto) 0.5 0.0-2.0 % Neutrophils # (Auto) 5.8 1.6-8.6 10 ^3/uL Lymphocytes # (Auto) 1.4 0.4-5.4 10 ^3/uL Monocytes # (Auto) 0.4 0-1.3 10 ^3/uL Eosinophils # (Auto) 0.1 0-0.8 10 ^3/uL Basophils # (Auto) 0 0-0.2 10 ^3/uL Nucleated Red Blood Cells 0.0 % Sodium Level 141 136-145 mmol/L Potassium Level 4.0 3.5-5.1 mmol/L Chloride Level 106 98-107 mmol/L Carbon Dioxide Level 25 20-31 mmol/L Anion Gap 10 5-15 Blood Urea Nitrogen 11 9-23 mg/dL Creatinine 1.02 0.700-1.30 mg/dL Glomerular Filtration Rate Calc 94 >90 mL/min BUN/Creatinine Ratio 10.8 10.0-20.0 Serum Glucose 85 74-106 mg/dL Calcium Level 9.4 8.7-10.4 mg/dL Total Bilirubin 0.3 0.2-1.0 mg/dL Aspartate Amino Transferase (AST) 36 13-40 U/L Alanine Aminotransferase (ALT) 28 7-40 U/L Alkaline Phosphatase 67 46-116 U/L Troponin I High Sensitivity 3 L </=54 ng/L Total Protein 7.4 5.7-8.2 g/dL Albumin 4.4 3.2-4.8 g/dL Lipase 52 12-53 U/L Plasma/Serum Blood Alcohol < 3.0 <10 mg/dL Current Medications Medications (Trade) Dose Ordered Sig/Stefany Route Start Time Stop Time Status Last Admin Ondansetron HCl (Zofran) 4 mg ONCE ONCE IV 03/21/25 03:15 03/21/25 03:18 DC 03/21/25 03:52 Hydromorphone HCl (Dilaudid Injection) 1 mg ONCE ONCE IV 03/21/25 03:15 03/21/25 03:18 DC 03/21/25 03:52 Sodium Chloride 1,000 ml @ 1,000 mls/hr Q1H ONCE IVB 03/21/25 03:15 03/21/25 04:14 DC 03/21/25 03:53 [facility] [id number] [facility] [address] Ph: [phone] DIAGNOSTIC IMAGING Diagnostic Imaging Report : [id number] Signed PATIENT: KAYLAH CAMPBELL ACCT: [id number] UNIT: [id number] : 1980 LOC: ER ROOM / BED: / AGE / SEX: 45 / M ADM STATUS: REG ER SERVICE 0315 ORDERING PHYSICIAN: ELMER DEVINE MD PROCEDURE(s): ABPLIV - CT AB PEL WITH IV CON ONLY REASON: abd pain ORDER NUMBER(s): [id number], ACCESSION NUMBER(s): [id number] Exam: CT CT AB PEL WITH IV CON ONLY History: abd pain Comparison Study: CT CT AB PEL WO CON-NO ORAL OR IV on DOS: 02/12/25 Contrast: Type of contrast: Omnipaque 300 Contrast injected: 100 mL Contrast wasted: 0 TECHNIQUE: CT of the abdomen pelvis was performed with intravenous contrast. Coronal and sagittal reformatted images are provided. Radiation Dose Information: CT Dose: CTDI volume is 5.4 mGy. Dose-length product is 3.92 mGy*cm FINDINGS: Lung Bases: No acute or significant lung base finding. Normal heart size. No pleural or pericardial effusion. Liver: The liver is normal in size. No focal lesions. Normal hepatic vascular enhancement. Gallbladder and Biliary Tree: Unremarkable Spleen: Unremarkable Pancreas: The pancreas is normal in appearance without focal lesions or abnormal enhancement. Adrenal Glands: Unremarkable Kidneys: Kidneys demonstrate normal symmetric enhancement without focal lesions, calculi or hydronephrosis. Bladder: Unremarkable Bowel: The stomach is grossly normal in appearance. Small bowel and colon are normal in caliber and distribution. The appendix is visualized; and is normal. Ascites: Absent Lymphadenopathy: No mesenteric, retroperitoneal or periportal lymphadenopathy. Abdominal Wall and Mesentery: Unremarkable. Vasculature: The visualized abdominal aorta is normal in size and caliber. Abdominal and pelvic vessels demonstrate normal enhancement. Pelvic Organs: Unremarkable Musculoskeletal: No aggressive focal bony lesions, acute fractures or dislocation. Soft tissues: Unremarkable. IMPRESSION: 1. No acute abnormality in the abdomen or pelvis. All CT scans at this medical facility are performed using dose modulation techni ques as appropriate to a performed exam including the following: Automated exposure control was utilized; adjustment of the MA and/or KV according to patient size; and use of iterative reconstruction technique. ATED BY: YAMIL MEDRANO MD DICTATED DATE/TIME: 03/21/25517 SIGNED BY: YAMIL MEDRANO MD SIGNED DATE/TIME: 03/21/25517 CC: Time of 1ST Reevaluation: 03:45 Reevaluation 1ST: Unchanged Patient Education/Counseling: Diagnosis, Treatment, Prognosis Family Education/Counseling: No Family Present SEPSIS Sepsis Screen Physician Orders Troponin-I Hs (03/21/25 06:00) Ct Ab Pel With Iv Con Only (03/21/25 03:15) Electrocardigram (03/21/25 03:15) Troponin-I Hs (03/21/25 06:15) Vital Signs Date Time Temp Pulse Resp B/P (MAP) Pulse Ox O2 Delivery O2 Flow Rate FiO2 03/21/25 04:22 66 16 115/72 03/21/25 03:52 70 18 128/78 03/21/25 03:45 98.4 70 16 128/78 (95) 98 98.4 03/21/25 03:20 98.5 80 18 154/99 98 98.5 Laboratory Tests Test 03/21/25 03:25 White Blood Count 7.7 10^3/uL (4.4-10.8) Medications Medications Dose Ordered Sig/Stefany Route Start Time Stop Time Status Last Admin Dose Admin Hydromorphone HCl 1 mg ONCE ONCE IV 03/21/25 03:15 03/21/25 03:18 DC 03/21/25 03:52 Ondansetron HCl 4 mg ONCE ONCE IV 03/21/25 03:15 03/21/25 03:18 DC 03/21/25 03:52 Sodium Chloride 1,000 ml @ 1,000 mls/hr Q1H ONCE IVB 03/21/25 03:15 03/21/25 04:14 DC 03/21/25 03:53 Departure 1 Departure Time of Disposition: 05:37 Impression: Primary Impression: Acute abdominal pain Disposition: 01 HOME / SELF CARE / HOMELESS Condition: Stable e-Prescriptions Gabapentin (Once-Daily) (Gabapentin) 300 Mg Tab 300 MG PO Q6HP PRN, #30 TAB Prov: ELMER DEVINE MD 03/21/25 Famotidine (PEPCID TABLET) 20 Mg Tb 1 TAB PO BID PRN, #180 TAB 3 Refills Prov: ELMER DEVINE MD 03/21/25 Discharged With: Self Critical Care Note Critical Care Time?: No Stability Stability form required: No Heart Score Heart Score: Heart Score Response (Comments) Value History N/A 0 EKG N/A 0 Age N/A 0 Risk Factors N/A 0 Troponin N/A 0 Total 0 I personally scribed for ELMER DEVINE MD ([email or web address]) on 03/21/25 at 03:20. Electronically submitted by Aline Reynoso ([email or web address]). I personally scribed for ELMER DEVINE MD ([email or web address]) on 03/21/25 at 05:32. Electronically submitted by Aline Reynoso ([email or web address]). ELMER DEVINE MD Mar 21, 2025 03:20
[2025-03-21 03:45] VITALS: TEMP 98.4; O2SAT 98
[2025-03-21] MEDS: HYDROmorphone HCL 2 MG/ML VL/or syr IV ONE (03:52)
[2025-03-21] MEDS: ONDANSETRON HCL 4 MG/2 ML VIAL IV ONE (03:52)
[2025-03-21] MEDS: SODIUM CHLORIDE 0.9% 1,000 ML IVB ONE (03:53)
[2025-03-21 03:54] LABS: Hematocrit 44.4 % (41.0-53.0); Hemoglobin 15.3 g/dL (13.5-17.5); Mean Corpuscular Hemoglobin 32.2 pg (28.0-32.0); Mean Corpuscular Volume 93.2 fL (80.0-100.0); Nucleated Red Blood Cells % 0.0 %
[2025-03-21 04:15] LABS: Alanine Aminotransferase 28 U/L (7-40); Alkaline Phosphatase 67 U/L (46-116); Calcium 9.4 mg/dL (8.7-10.4); Carbon Dioxide 25 mmol/L (20-31); Chloride 106 mmol/L (98-107)
[2025-03-21 04:16] LABS: Albumin 4.4 g/dL (3.2-4.8); Anion Gap 10 (5-15); BUN/Creatinine Ratio 10.8 (10.0-20.0); Bilirubin, Total 0.3 mg/dL (0.2-1.0); Blood Urea Nitrogen 11 mg/dL (9-23); Glucose 85 mg/dL (74-106); Lipase 52 U/L (12-53); Potassium 4.0 mmol/L (3.5-5.1); Sodium 141 mmol/L (136-145); Total Protein 7.4 g/dL (5.7-8.2)
[2025-03-21 04:22] VITALS: BP 115/72; PULSE 66; RESP 16
[2025-03-21] MEDS: IOHEXOL 300 MG/ML 100ML BOTTLE IJ ONE (05:01)
--- NOTE | 2025-03-21 05:20 | DVH ---
Exam: CT CT AB PEL WITH IV CON ONLY History: abd pain Comparison Study: CT CT AB PEL WO CON-NO ORAL OR IV on DOS: 02/12/25 Contrast: Type of contrast: Omnipaque 300 Contrast injected: 100 mL Contrast wasted: 0 TECHNIQUE: CT of the abdomen pelvis was performed with intravenous contrast. Coronal and sagittal re formatted images are provided. Radiation Dose Information: CT Dose: CTDI volume is 5.4 mGy. Dose-length product is 3.92 mGy*cm FINDINGS: Lung Bases: No acute or significant lung base finding. Normal heart size. No pleural or pericardial effusion. Liver: The liver is normal in size. No focal lesions. Normal hepatic vascular enhancement. Gallbladder and Biliary Tree: Unremarkable Spleen: Unremarkable Pancreas: The pancreas is normal in appearance without focal lesions or abnormal enhancement. Adrenal Glands: Unremarkable Kidneys: Kidneys demonstrate normal symmetric enhancement without focal lesions, calculi or hydroneph rosis. Bladder: Unremarkable Bowel: The stomach is grossly normal in appearance. Small bowel and colon are normal in caliber and d istribution. The appendix is visualized; and is normal. Ascites: Absent Lymphadenopathy: No mesenteric, retroperitoneal or periportal lymphadenopathy. Abdominal Wall and Mesentery: Unremarkable. Vasculature: The visualized abdominal aorta is normal in size and caliber. Abdominal and pelvic vess els demonstrate normal enhancement. Pelvic Organs: Unremarkable Musculoskeletal: No aggressive focal bony lesions, acute fractures or dislocation. Soft tissues: Unremarkable. IMPRESSION: 1. No acute abnormality in the abdomen or pelvis. All CT scans at this medical facility are performed using dose modulation techniques as appropriate t o a performed exam including the following: Automated exposure control was utilized; adjustment of th e MA and/or KV according to patient size; and use of iterative reconstruction technique.
[2025-03-21] MEDS ORDERED: FAMO20TA10 PO (05:32)
[2025-03-21] MEDS ORDERED: GABA300T4 PO (05:32)
== END 2025-03-21 05:35 | disposition home or self-care (01) ==
LOC: ER 03:08 → EDBD 03:08 → ER 05:35
DX: R10.13 Epigastric pain (principal); F12.90 Cannabis use, unspecified, uncomplicated; F10.90 Alcohol use, unspecified, uncomplicated; F17.210 Nicotine dependence, cigarettes, uncomplicated; Z79.899 Other long term (current) drug therapy; Z88.0 Allergy status to penicillin; Z87.19 Personal history of other diseases of the digestive system
CPT/HCPCS: 36415; 74177; 80053; 80320; 83690; 84484; 85025; 96361; 96374; 96375; 99285; J1171; J2405; J7030; Q9967